=== PATIENT | female | born 1945 | race Caucasian/White ===

== ENCOUNTER 2023-05-13 16:04 | Inpatient (IN) | payer MEDICARE, MEDICAID, SELFPAY ==
[2023-05-13] VITALS (109 sets, daily range): BP systolic 92–168; BP diastolic 46–119; PULSE 64–115; RESP 16–40; TEMP 30.4–35.5; O2SAT 90–100; BMI 38.4
--- NOTE | 2023-05-13 16:40 | DI.RAD.S_ITS ---
PROCEDURE: XR CHEST 1V INDICATIONS: suspected sepsis TECHNIQUE: One view of the chest was acquired. COMPARISON: None. FINDINGS: Surgical changes and devices: None. Lungs and pleura: Prominent interstitial markings. Possible right basilar opacity.. No pleural effusions or pneumothorax. Mediastinum: Mediastinal contours appear normal. Heart size is enlarged. Bones and chest wall: No suspicious bony lesions. Overlying soft tissues appear unremarkable. IMPRESSION: Cardiomegaly with prominent interstitial markings, correlate for volume overload. Possible right basilar opacity. Dictated by: Manny Lee M.D. on 05/13/2023 at 17:41 Approved by: Manny Lee M.D. on 05/13/2023 at 17:42
[2023-05-13 16:55] LABS: Add Manual Diff / Slide Review NO; Basophils Absolute Auto 100 /uL (0-100); Eosinophils Absolute Auto 0 /uL (0-450); Eosinophils Percent Auto 0.2 % (2-4); Hematocrit 36.7 % (36-46); Hemoglobin 11.6 g/dL (12.0-16.0); Lymphocytes Absolute Auto 700 /uL (1100-4500); Lymphocytes Percent Auto 8.7 % (25-40); Mean Corpuscular HGB Conc 31.7 % (30-36); Mean Corpuscular Hemoglobin 29.3 PG (26-34); Mean Corpuscular Volume 92.5 fL (80-100); Monocytes Absolute Auto 1000 /uL (0-900); Monocytes Percent Auto 12.7 % (3-14); Neutrophils Absolute Auto 6300 /uL (1500-7000); Neutrophils Percent Auto 77.4 % (50-75); Platelet Count 280 X10^3/uL (150-400); Red Blood Cell Count 3.97 X10^6/uL (4.0-5.2); Red Cell Distribution Width 19.9 % (11.6-14.8); White Blood Cell Count 8.1 X10^3/uL (4.5-11.0)
[2023-05-13] MEDS: SODIUM CHLORIDE 0.9% 1,000 ML 1000 ML IV (16:59)
[2023-05-13 17:02] LABS: INR 1.8 (0.9-1.3); Prothrombin Time 20.9 SECONDS (9.4-12.5)
[2023-05-13 17:03] LABS: Lactate (Lactic Acid) 3.5 mmol/L (0.7-2.1)
[2023-05-13 17:04] LABS: Alanine Aminotransferase 30 IU/L (<35); Albumin 3.7 g/dL (3.5-5.0); Albumin Globulin Ratio 0.8 (1.0-2.8); Alkaline Phosphatase 225 U/L (38-126); Aspartate Aminotransferase 74 IU/L (14-36); BUN Creatinine Ratio 35.6 (6-22); Bilirubin Total 1.3 mg/dL (0.2-1.3); Blood Urea Nitrogen 32 mg/dL (7-17); Calcium 9.3 mg/dL (8.4-10.2); Carbon Dioxide 21 mmol/L (22-32); Chloride 101 mmol/L (98-107); Creatine Kinase 60 U/L (30-135); Estimated Glomerular Filt Rate > 60 mL/min (>60); Globulin 4.6 g/dL (1.7-4.1); Glucose 114 mg/dL (80-110); HEMOLYSIS < 15 (0-50); Lipase 102 U/L (23-300); PTT Partial Thromboplastin Tim 37 SECONDS (25.1-36.5); Sodium 135 mmol/L (137-145); Total Protein 8.3 g/dL (6.3-8.2)
[2023-05-13 17:16] LABS: NT-proBNP (BNP-Adult 18+) 2180 pg/mL (<450)
[2023-05-13 17:21] LABS: Procalcitonin 0.11 ng/mL (<0.5)
[2023-05-13 17:37] LABS: Troponin I 0.211 ng/mL (0.01-0.034)
[2023-05-13 17:43] LABS: Ethanol (ETOH) < 10 mg/dL
[2023-05-13 18:03] LABS: Appearance Urine UA CLEAR; Bilirubin Urine UA NEGATIVE (NEGATIVE); Glucose Urine UA NEGATIVE (Negative); Ketones Urine UA NEGATIVE (NEGATIVE); Leukocyte Esterase Urine UA NEGATIVE (NEGATIVE); Nitrite Urine UA NEGATIVE (Negative); Occult Blood Urine UA NEGATIVE (Negative); Protein Urine UA 2+ (Negative); Specific Gravity Urine UA >=1.030 (1.000-1.035)
[2023-05-13 18:04] LABS: Color Urine UA ORANGE
[2023-05-13 18:06] LABS: Ur Creatinine Normal (Normal); Ur Specific Gravity Normal (Normal); Urine Amphetamines Negative (Negative); Urine Barbiturates Negative (Negative); Urine Benzodiazepines Negative (Negative); Urine Cocaine Negative (Negative); Urine MDMA Negative (Negative); Urine Methadone Negative (Negative); Urine Methamphetamines Negative (Negative); Urine Opiates Negative (Negative); Urine Oxycodone Negative (Negative); Urine Phencyclidine Negative (Negative); Urine THC Negative (Negative); Urine Tricyclic Antidepressant Negative (Negative); Urine pH Normal (Normal)
--- NOTE | 2023-05-13 18:06 | ED.EXTPRO ---
HPI - Extremity Problem General Chief complaint: Extremity Problem,Nontraumatic Stated complaint: bilateral leg swelling, cracking Time Seen by Provider: 05/13/23 17:29 History of Present Illness HPI Narrative: This is a 69-year-old female who apparently has a history of chronic venous stasis and chronic swelling in both legs. She is brought in to the emergency department by her son after presenting to an urgent care. Patient and her son report bilateral lower extremity pain primarily below the knees. At baseline she has limited ambulation, presently she is unable to ambulate at all part of this is weakness, she has also had some confusion and decreased mental status. No chest pain. She has not been noted to have fevers. Has a history of atrial fibrillation. Has a history of regular alcohol use, her sudden went to date on in [facility] where she regularly resides and brought her back, she has not had any alcohol in greater than a week. Her last hospitalization [facility] in [facility]. Patient is unsure why she was hospitalized there but apparently she was airlifted there. Has a history of bilateral lower extremity edema which typically does have compression dressings applied. No history of hypothyroidism, has a pulsed form indicating DNR but would accept at least selective treatment. Presently taking metoprolol and gabapentin at uncertain doses. Has previously been on Xarelto but apparently is not presently taking that also has a prescriptions for [place] and furosemide and apparently not taking those as well. No recent falls. Related Data Home Medications Medication Instructions Recorded Confirmed gabapentin 300 mg capsule 300 mg PO QID 05/13/23 05/13/23 metoprolol tartrate 25 mg tablet 75 mg PO BID 05/13/23 05/13/23 Allergies Allergy/AdvReac Type Severity Reaction Status Date / Time Penicillins Allergy Verified 05/13/23 16:09 Patient History Social History household members: family Smoking Status: Never smoker Smoking Status: Never smoker alcohol intake frequency: holidays/special occasions only Substance Use Type: does not use Exam Initial Vital Signs Initial Vital Signs: Vital Signs Temperature 94.0 F L 05/13/23 16:09 Pulse Rate 68 05/13/23 16:09 Respiratory Rate 18 05/13/23 16:09 Blood Pressure 100/56 L 05/13/23 16:09 Pulse Oximetry 91 05/13/23 16:09 Oxygen Delivery Method Room Air 05/13/23 16:09 Const Other: Elderly female who appears a bit encephalopathic, she generally prefers to allow her son to do the talking however when questioned directly she is oriented to year not the city and tends to confabulate on questions. She is noted to be significantly hypothermic with marginal blood pressures HENMT HENDC Other: Normocephalic, atraumatic, no facial droop or asymmetry Eyes Other: Pupils are equal round and reactive extraocular movements are intact Neck Other: Neck is supple, I am unable to assess jugular venous distention secondary to body habitus Resp Other: No respiratory distress, speaking in full sentences, she has peripheral cyanosis Cardio Other: Irregularly irregular soft systolic murmur GI Other: Abdomen is obese, bowel sounds normal soft Skin Other: Chronic venous stasis changes in her lower extremities. Neuro Other: No focal motor deficits, mental status as described above Extrem Other: Both feet are cyanotic with delayed capillary refill. They are tender to palpation they are cool, I am unable to palpate pulses and we are unable to locate pulses with the Doppler. Course Orders Ordered: ED Orders 05/13/23 16:40 XR chest 1V Stat BNP [NT-proBNP (BNP-Adult 18+)] Stat Complete Blood Count AUTO DIFF Stat Comprehensive Metabolic Panel Stat ETOH [Ethanol (ETOH)] Stat Lactate (Lactic Acid) Stat Lipase Stat PTT Partial Thromboplastin [place] Stat Procalcitonin Stat Prothrombin Time INR Stat TSH [Thyroid Stimulating Hormone] Stat Troponin & CK Cardiac Panel Stat EKG-12 Lead Stat RT Consult Eval and Treat NOW 05/13/23 17:30 Blood Culture Stat 05/13/23 17:50 Urinalysis and Microscopic Stat urine tox [Urine Drug Screen, Rapid] Stat 05/13/23 18:31 US periph venous low extrem bi Stat pH VBG Stat 05/13/23 18:45 EKG-12 Lead Stat 05/13/23 18:50 US arterial duplex LE BI Stat 05/13/23 19:00 Trop I [Troponin I] Stat Acetaminophen (Acetaminophen 325 Mg Tablet) 650 mg PO Q6H PRN PRN Reason: Fever/Mild Pain (1-3) Last Admin: 05/13/23 23:27 Dose: 650 mg Documented By: [facility] Hydrocodone Bitart/Acetaminophen (Hydrocodone/Acet 5/325 Tablet) 1 tab PO Q4H PRN PRN Reason: Pain, Moderate (4-6) Last Admin: 05/13/23 23:28 Dose: 1 tab Documented By: OUSMANE Enoxaparin Sodium (Enoxaparin 40 Mg/0.4 Ml Syringe) 40 mg SUBCUT DAILY VERO Cefepime HCl 1 gm/ Sodium (Chloride) 100 mls @ 200 mls/hr IV Q12H VERO Naloxone HCl (Naloxone 0.4 Mg/Ml Vial) 0.2 mg IV Q2MIN PRN PRN Reason: Opiate Reversal Ondansetron HCl (Ondansetron 4 Mg/2 Ml Inj) 4 mg IV NOW PRN PRN Reason: Nausea And Vomiting Ondansetron HCl (Ondansetron 4 Mg Odt) 4 mg SL NOW PRN PRN Reason: Nausea And Vomiting Ondansetron HCl (Ondansetron 4 Mg/2 Ml Inj) 4 mg IV Q8HR PRN PRN Reason: Nausea And Vomiting Ondansetron HCl (Ondansetron 4 Mg Odt) 4 mg PO Q8HR PRN PRN Reason: Nausea And Vomiting Sennosides (Sennosides 8.6 Mg Tablet) 17.2 mg PO BEDTIME VERO Discontinued Medications Sodium Chloride (Normal Saline 0.9%) 1,000 mls @ 1,000 mls/hr IV BOLUS ONE Stop: 05/13/23 17:39 Last Infusion: 05/13/23 19:03 Dose: Infused Documented By: Infusion: 05/13/23 17:30 Dose: 500 mls/hr Documented By: Infusion: 05/13/23 17:25 Dose: 0 mls/hr Documented By: Infusion: 05/13/23 16:59 Dose: 500 mls/hr Documented By: Admin: 05/13/23 16:59 Dose: 1,000 mls/hr Documented By: CHESTER Vancomycin HCl (Vancomycin) 1,250 mg in 250 mls @ 250 mls/hr IV NOW ONE Stop: 05/13/23 19:38 Last Infusion: 05/13/23 21:03 Dose: Infused Documented By: Admin: 05/13/23 19:53 Dose: 250 mls/hr Documented By: CHESTER Cefepime HCl 2 gm/ Sodium (Chloride) 100 mls @ 200 mls/hr IV NOW ONE Stop: 05/13/23 18:41 Last Infusion: 05/13/23 19:49 Dose: Infused Documented By: Admin: 05/13/23 19:03 Dose: 200 mls/hr Documented By: ROSALBA Sodium Chloride (Normal Saline 0.9%) 1,000 mls @ 500 mls/hr IV BOLUS ONE Stop: 05/13/23 21:56 Last Infusion: 05/13/23 22:38 Dose: Infused Documented By: Admin: 05/13/23 20:04 Dose: 500 mls/hr Documented By: CHESTER Consultations Consultation #1: Discussed with hospitalist who accepts admission at 2200 Vital Signs Vital signs: Vital Signs - 8 hr 05/13/23 16:53 05/13/23 16:56 05/13/23 16:56 Temperature Pulse Rate 69 72 Respiratory Rate 27 H 31 H Blood Pressure 163/110 H Pulse Oximetry 99 97 Oxygen Delivery Method Oxygen Flow Rate 05/13/23 17:00 05/13/23 17:01 05/13/23 17:01 Temperature Pulse Rate 72 69 Respiratory Rate 32 H 32 H Blood Pressure 168/119 H Pulse Oximetry 97 96 Oxygen Delivery Method Oxygen Flow Rate 05/13/23 17:05 05/13/23 17:06 05/13/23 17:06 Temperature 86.7 F L 87.3 F L Pulse Rate 78 77 Respiratory Rate 22 38 H Blood Pressure 132/80 Pulse Oximetry 98 97 Oxygen Delivery Method Oxygen Flow Rate 05/13/23 17:10 05/13/23 17:11 05/13/23 17:11 Temperature 88.3 F L 88.7 F L Pulse Rate 68 64 Respiratory Rate 27 H 17 Blood Pressure 144/64 H Pulse Oximetry 98 99 Oxygen Delivery Method Oxygen Flow Rate 05/13/23 17:15 05/13/23 17:16 05/13/23 17:16 Temperature 89.2 F L 89.2 F L Pulse Rate 72 71 Respiratory Rate 20 18 Blood Pressure 125/60 Pulse Oximetry 97 94 Oxygen Delivery Method Oxygen Flow Rate 05/13/23 17:20 05/13/23 17:21 05/13/23 17:21 Temperature 89.6 F L 89.8 F L Pulse Rate 74 69 Respiratory Rate 21 20 Blood Pressure 132/57 L Pulse Oximetry 97 96 Oxygen Delivery Method Oxygen Flow Rate 05/13/23 17:25 05/13/23 17:30 05/13/23 17:35 Temperature 90.0 F L 90.1 F L Pulse Rate 79 72 Respiratory Rate 22 17 Blood Pressure 112/50 L Pulse Oximetry 97 90 L Oxygen Delivery Method Oxygen Flow Rate 05/13/23 17:35 05/13/23 17:40 05/13/23 17:41 Temperature 90.3 F L 90.3 F L Pulse Rate 70 72 Respiratory Rate 17 23 Blood Pressure 95/60 Pulse Oximetry 94 97 Oxygen Delivery Method Oxygen Flow Rate 05/13/23 17:41 05/13/23 17:45 05/13/23 17:46 Temperature 90.3 F L 90.3 F L Pulse Rate 71 68 Respiratory Rate 21 21 Blood Pressure 127/65 Pulse Oximetry 97 97 Oxygen Delivery Method Oxygen Flow Rate 05/13/23 17:46 05/13/23 17:50 05/13/23 17:51 Temperature 90.3 F L 90.3 F L Pulse Rate 66 65 Respiratory Rate 18 24 Blood Pressure 100/49 L Pulse Oximetry 96 97 Oxygen Delivery Method Oxygen Flow Rate 05/13/23 17:51 05/13/23 17:55 05/13/23 17:55 Temperature 90.5 F L 90.5 F L Pulse Rate 70 73 Respiratory Rate 20 16 Blood Pressure 113/58 L Pulse Oximetry 97 96 Oxygen Delivery Method Nasal Cannula Oxygen Flow Rate 4 05/13/23 18:00 05/13/23 18:00 05/13/23 18:05 Temperature 90.5 F L 90.5 F L Pulse Rate 66 64 Respiratory Rate 17 26 H Blood Pressure 107/50 L Pulse Oximetry 96 97 Oxygen Delivery Method Oxygen Flow Rate 05/13/23 18:06 05/13/23 18:06 05/13/23 18:10 Temperature 90.5 F L Pulse Rate 69 Respiratory Rate 19 Blood Pressure 119/56 L 107/56 L Pulse Oximetry 96 Oxygen Delivery Method Oxygen Flow Rate 05/13/23 18:10 05/13/23 18:15 05/13/23 18:15 Temperature 90.5 F L 90.5 F L Pulse Rate 68 69 Respiratory Rate 20 24 Blood Pressure 120/63 Pulse Oximetry 96 96 Oxygen Delivery Method Nasal Cannula Oxygen Flow Rate 4 05/13/23 18:20 05/13/23 18:20 05/13/23 18:25 Temperature 90.5 F L 90.5 F L Pulse Rate 66 76 Respiratory Rate 25 H 25 H Blood Pressure 115/58 L Pulse Oximetry 97 94 Oxygen Delivery Method Oxygen Flow Rate 05/13/23 18:26 05/13/23 18:26 05/13/23 18:30 Temperature 90.5 F L 90.5 F L Pulse Rate 68 71 Respiratory Rate 27 H 17 Blood Pressure 101/63 Pulse Oximetry 96 97 Oxygen Delivery Method Oxygen Flow Rate 05/13/23 18:31 05/13/23 18:31 05/13/23 18:35 Temperature 90.7 F L 90.7 F L Pulse Rate 69 69 Respiratory Rate 20 19 Blood Pressure 105/59 L Pulse Oximetry 97 96 Oxygen Delivery Method Nasal Cannula Oxygen Flow Rate 05/13/23 18:36 05/13/23 18:36 05/13/23 18:40 Temperature 90.7 F L 90.7 F L Pulse Rate 69 68 Respiratory Rate 25 H 19 Blood Pressure 92/66 Pulse Oximetry 96 97 Oxygen Delivery Method Oxygen Flow Rate 05/13/23 18:41 05/13/23 18:41 05/13/23 18:45 Temperature 90.7 F L 90.7 F L Pulse Rate 69 71 Respiratory Rate 21 23 Blood Pressure 111/56 L Pulse Oximetry 96 95 Oxygen Delivery Method Oxygen Flow Rate 05/13/23 18:45 05/13/23 18:50 05/13/23 18:50 Temperature 90.9 F L Pulse Rate 68 Respiratory Rate 20 Blood Pressure 115/54 L 96/46 L Pulse Oximetry 94 Oxygen Delivery Method Oxygen Flow Rate 05/13/23 18:55 05/13/23 18:55 05/13/23 19:00 Temperature 90.9 F L Pulse Rate 67 Respiratory Rate 25 H Blood Pressure 94/50 L 95/51 L Pulse Oximetry 93 Oxygen Delivery Method Oxygen Flow Rate 05/13/23 19:00 05/13/23 19:05 05/13/23 19:05 Temperature 90.9 F L 91.0 F L Pulse Rate 67 68 Respiratory Rate 25 H 23 Blood Pressure 108/58 L Pulse Oximetry 93 93 Oxygen Delivery Method Nasal Cannula Oxygen Flow Rate 4 05/13/23 19:10 05/13/23 19:10 05/13/23 19:15 Temperature 91.0 F L 91.0 F L Pulse Rate 69 66 Respiratory Rate 23 22 Blood Pressure 97/58 L Pulse Oximetry 93 95 Oxygen Delivery Method Nasal Cannula Oxygen Flow Rate 4 05/13/23 19:16 05/13/23 19:16 05/13/23 19:20 Temperature 91.0 F L 91.2 F L Pulse Rate 69 74 Respiratory Rate 26 H 24 Blood Pressure 100/63 Pulse Oximetry 95 95 Oxygen Delivery Method Oxygen Flow Rate 05/13/23 19:22 05/13/23 19:22 05/13/23 19:25 Temperature 91.2 F L Pulse Rate 78 Respiratory Rate 22 Blood Pressure 108/58 L 119/58 L Pulse Oximetry 94 Oxygen Delivery Method Oxygen Flow Rate 05/13/23 19:25 05/13/23 19:30 05/13/23 19:31 Temperature 91.2 F L 91.2 F L Pulse Rate 76 70 Respiratory Rate 17 24 Blood Pressure 150/67 H Pulse Oximetry 96 94 Oxygen Delivery Method Oxygen Flow Rate 05/13/23 19:31 05/13/23 19:35 05/13/23 19:36 Temperature 91.2 F L 91.4 F L 91.4 F L Pulse Rate 78 69 73 Respiratory Rate 27 H 19 21 Blood Pressure Pulse Oximetry 94 95 95 Oxygen Delivery Method Oxygen Flow Rate 05/13/23 19:36 05/13/23 19:40 05/13/23 19:41 Temperature 91.4 F L Pulse Rate 72 Respiratory Rate 17 Blood Pressure 127/58 L 109/57 L Pulse Oximetry 95 Oxygen Delivery Method Oxygen Flow Rate 05/13/23 19:41 05/13/23 19:45 05/13/23 19:45 Temperature 91.4 F L 91.4 F L Pulse Rate 72 77 Respiratory Rate 22 25 H Blood Pressure 136/58 L Pulse Oximetry 94 94 Oxygen Delivery Method Nasal Cannula Oxygen Flow Rate 4 05/13/23 19:50 05/13/23 19:51 05/13/23 19:51 Temperature 91.6 F L 91.6 F L Pulse Rate 73 77 Respiratory Rate 22 27 H Blood Pressure 130/59 L Pulse Oximetry 93 95 Oxygen Delivery Method Nasal Cannula Oxygen Flow Rate 4 05/13/23 19:55 05/13/23 20:00 05/13/23 20:01 Temperature 91.6 F L 91.8 F L Pulse Rate 74 77 Respiratory Rate 21 22 Blood Pressure 113/56 L Pulse Oximetry 94 95 Oxygen Delivery Method Oxygen Flow Rate 05/13/23 20:01 05/13/23 20:05 05/13/23 20:10 Temperature 91.8 F L 91.8 F L 91.8 F L Pulse Rate 77 77 85 Respiratory Rate 22 26 H Blood Pressure Pulse Oximetry 94 95 94 Oxygen Delivery Method Nasal Cannula Oxygen Flow Rate 4 05/13/23 20:15 05/13/23 20:16 05/13/23 20:16 Temperature 91.9 F L 91.9 F L Pulse Rate 74 76 Respiratory Rate 25 H Blood Pressure 126/46 L Pulse Oximetry 95 96 Oxygen Delivery Method Nasal Cannula Oxygen Flow Rate 4 05/13/23 20:20 05/13/23 20:25 05/13/23 20:30 Temperature 91.9 F L 92.1 F L 92.1 F L Pulse Rate 74 79 77 Respiratory Rate 23 24 26 H Blood Pressure Pulse Oximetry 95 95 95 Oxygen Delivery Method Oxygen Flow Rate 05/13/23 20:35 05/13/23 20:40 05/13/23 20:40 Temperature 92.1 F L 92.3 F L Pulse Rate 72 75 Respiratory Rate 19 21 Blood Pressure 103/50 L Pulse Oximetry 95 94 Oxygen Delivery Method Oxygen Flow Rate 05/13/23 20:45 05/13/23 20:45 05/13/23 20:50 Temperature 92.3 F L 92.5 F L Pulse Rate 73 80 Respiratory Rate 21 26 H Blood Pressure 105/52 L Pulse Oximetry 94 95 Oxygen Delivery Method Nasal Cannula Oxygen Flow Rate 4 05/13/23 20:55 05/13/23 21:00 05/13/23 21:01 Temperature 92.5 F L 92.7 F L Pulse Rate 84 75 Respiratory Rate 20 30 H Blood Pressure 114/51 L Pulse Oximetry 94 95 Oxygen Delivery Method Oxygen Flow Rate 05/13/23 21:01 05/13/23 21:05 05/13/23 21:10 Temperature 92.7 F L 92.7 F L 92.8 F L Pulse Rate 84 76 75 Respiratory Rate 32 H 27 H 25 H Blood Pressure Pulse Oximetry 95 96 96 Oxygen Delivery Method Oxygen Flow Rate 05/13/23 21:15 05/13/23 21:15 05/13/23 21:20 Temperature 92.8 F L 93.0 F L Pulse Rate 74 79 Respiratory Rate 30 H 29 H Blood Pressure 96/51 L Pulse Oximetry 98 96 Oxygen Delivery Method Oxygen Flow Rate 05/13/23 21:25 05/13/23 21:30 05/13/23 21:31 Temperature 93.0 F L 93.2 F L Pulse Rate 81 90 Respiratory Rate 36 H 36 H Blood Pressure 133/63 Pulse Oximetry 98 97 Oxygen Delivery Method Oxygen Flow Rate 05/13/23 21:31 05/13/23 21:35 05/13/23 21:40 Temperature 93.2 F L 93.4 F L 93.4 F L Pulse Rate 81 86 91 H Respiratory Rate 36 H 30 H 35 H Blood Pressure Pulse Oximetry 93 98 99 Oxygen Delivery Method Nasal Cannula Oxygen Flow Rate 4 05/13/23 21:45 05/13/23 21:45 05/13/23 21:50 Temperature 93.6 F L 93.6 F L Pulse Rate 92 H 101 H Respiratory Rate 31 H 30 H Blood Pressure 149/70 H Pulse Oximetry 99 100 Oxygen Delivery Method Oxygen Flow Rate 05/13/23 21:55 05/13/23 22:00 05/13/23 22:05 Temperature 93.7 F L 93.7 F L 93.9 F L Pulse Rate 98 H 107 H 100 H Respiratory Rate 30 H 28 H 31 H Blood Pressure Pulse Oximetry 100 99 99 Oxygen Delivery Method Nasal Cannula Oxygen Flow Rate 4 MDM - Extremity (Nontraumatic) Lab Data Lab results narrative: CBC is unremarkable. CMP she has elevated BUN and creatinine ratio indicating dehydration high normal potassium. Lactic is elevated at 3.5. Procalcitonin is normal. Troponin is elevated at 0.2 and 1 with elevated proBNP at 2180 no baseline TSH is normal 05/13/23 16:40 05/13/23 16:40 Labs: Lab Results 05/13/23 05/13/23 05/13/23 Range/Units 16:40 17:50 17:50 WBC 8.1 (4.5-11.0) X10^3/uL RBC 3.97 L (4.0-5.2) X10^6/uL Hgb 11.6 L (12.0-16.0) g/dL Hct 36.7 (36-46) % MCV 92.5 (80-100) fL MCH 29.3 (26-34) PG MCHC 31.7 (30-36) % RDW 19.9 H (11.6-14.8) % Plt Count 280 (150-400) X10^3/uL Neut % (Auto) 77.4 H (50-75) % Lymph % (Auto) 8.7 L (25-40) % [place] % (Auto) 12.7 (3-14) % Eos % (Auto) 0.2 L (2-4) % Baso % (Auto) 1.0 (0-2) % Neut # (Auto) 6300 (7071-6593) /uL Lymph # (Auto) 700 L (0830-4002) /uL [place] # (Auto) 1000 H (0-900) /uL Eos # (Auto) 0 (0-450) /uL Baso # (Auto) 100 (0-100) /uL PT 20.9 H (9.4-12.5) SECONDS INR 1.8 H (0.9-1.3) APTT 37 H (25.1-36.5) SECONDS VBG pH (7.33-7.43) Sodium 135 L (137-145) mmol/L Potassium 5.0 (3.4-5.1) mmol/L Chloride 101 (98-107) mmol/L Carbon Dioxide 21 L (22-32) mmol/L BUN 32 H (7-17) mg/dL Creatinine 0.90 (0.52-1.04) mg/dL Estimated GFR > 60 (>60) mL/min BUN/Creatinine Ratio 35.6 H (6-22) Glucose 114 H (80-110) mg/dL Lactate 3.5 H (0.7-2.1) mmol/L Calcium 9.3 (8.4-10.2) mg/dL Total Bilirubin 1.3 (0.2-1.3) mg/dL AST 74 H (14-36) IU/L ALT 30 (<35) IU/L Alkaline Phosphatase 225 H (38-126) U/L Total Creatine Kinase 60 (30-135) U/L Troponin I 0.211 H* (0.01-0.034) ng/mL NT-Pro-B Natriuret Pep 2180 H (<450) pg/mL Total Protein 8.3 H (6.3-8.2) g/dL Albumin 3.7 (3.5-5.0) g/dL Globulin 4.6 H (1.7-4.1) g/dL Albumin/Globulin Ratio 0.8 L (1.0-2.8) Lipase 102 (23-300) U/L Procalcitonin 0.11 (<0.5) ng/mL TSH 3.36 (0.47-4.68) uIU/mL Urine Color [place] Urine Appearance Clear Urine pH 5.0 Normal (4.5-8.0) Ur Specific [place] >=1.030 H (1.000-1.035) Urine Protein 2+ H (Negative) Urine Glucose (UA) Negative (Negative) g/dL Urine Ketones Negative (NEGATIVE) Urine Occult Blood Negative (Negative) Urine Nitrate Negative (Negative) Urine Bilirubin Negative (NEGATIVE) Urine Urobilinogen 4.0 H (0.2) E.U./dL Ur Leukocyte Esterase Negative (NEGATIVE) Urine RBC None seen (0-5/HPF) Urine WBC 0-1/hpf (0-5/HPF) Ur Squamous Epith Cells 5-10 /hpf H (0-5/HPF) Urine Bacteria Moderate (10-30) H (None) Hyaline Casts 1-5/lpf (None) Urine Mucus 2+ H (Negative) Ur Culture Indicated? Cult not indicated Vol Urine Centrifuged 10ml (spun) U Opiates 300ng/mL cut Negative (Negative) Ur Oxycodone Screen Negative (Negative) Urine Methadone Screen Negative (Negative) Ur Barbiturates Screen Negative (Negative) U Tricyclic Antidepress Negative (Negative) Ur Phencyclidine Scrn Negative (Negative) Ur Amphetamines Screen Negative (Negative) U Methamphetamines Scrn Negative (Negative) Ur MDMA Scrn (Ecstasy) Negative (Negative) U Benzodiazepines Scrn Negative (Negative) Urine Cocaine Screen Negative (Negative) U Marijuana (THC) Screen Negative (Negative) Urine Specific [place] Normal (Normal) Ethyl Alcohol < 10 ( - 10) mg/dL Ur Creatinine Normal (Normal) 05/13/23 05/13/23 Range/Units 18:31 19:00 WBC (4.5-11.0) X10^3/uL RBC (4.0-5.2) X10^6/uL Hgb (12.0-16.0) g/dL Hct (36-46) % MCV (80-100) fL MCH (26-34) PG MCHC (30-36) % RDW (11.6-14.8) % Plt Count (150-400) X10^3/uL Neut % (Auto) (50-75) % Lymph % (Auto) (25-40) % [place] % (Auto) (3-14) % Eos % (Auto) (2-4) % Baso % (Auto) (0-2) % Neut # (Auto) (4536-5879) /uL Lymph # (Auto) (6916-1093) /uL [place] # (Auto) (0-900) /uL Eos # (Auto) (0-450) /uL Baso # (Auto) (0-100) /uL PT (9.4-12.5) SECONDS INR (0.9-1.3) APTT (25.1-36.5) SECONDS VBG pH 7.32 L (7.33-7.43) Sodium (137-145) mmol/L Potassium (3.4-5.1) mmol/L Chloride (98-107) mmol/L Carbon Dioxide (22-32) mmol/L BUN (7-17) mg/dL Creatinine (0.52-1.04) mg/dL Estimated GFR (>60) mL/min BUN/Creatinine Ratio (6-22) Glucose (80-110) mg/dL Lactate 3.2 H (0.7-2.1) mmol/L Calcium (8.4-10.2) mg/dL Total Bilirubin (0.2-1.3) mg/dL AST (14-36) IU/L ALT (<35) IU/L Alkaline Phosphatase (38-126) U/L Total Creatine Kinase (30-135) U/L Troponin I 0.251 H* (0.01-0.034) ng/mL NT-Pro-B Natriuret Pep (<450) pg/mL Total Protein (6.3-8.2) g/dL Albumin (3.5-5.0) g/dL Globulin (1.7-4.1) g/dL Albumin/Globulin Ratio (1.0-2.8) Lipase (23-300) U/L Procalcitonin (<0.5) ng/mL TSH (0.47-4.68) uIU/mL Urine Color Urine Appearance Urine pH (4.5-8.0) Ur Specific [place] (1.000-1.035) Urine Protein (Negative) Urine Glucose (UA) (Negative) g/dL Urine Ketones (NEGATIVE) Urine Occult Blood (Negative) Urine Nitrate (Negative) Urine Bilirubin (NEGATIVE) Urine Urobilinogen (0.2) E.U./dL Ur Leukocyte Esterase (NEGATIVE) Urine RBC (0-5/HPF) Urine WBC (0-5/HPF) Ur Squamous Epith Cells (0-5/HPF) Urine Bacteria (None) Hyaline Casts (None) Urine Mucus (Negative) Ur Culture Indicated? Vol Urine Centrifuged U Opiates 300ng/mL cut (Negative) Ur Oxycodone Screen (Negative) Urine Methadone Screen (Negative) Ur Barbiturates Screen (Negative) U Tricyclic Antidepress (Negative) Ur Phencyclidine Scrn (Negative) Ur Amphetamines Screen (Negative) U Methamphetamines Scrn (Negative) Ur MDMA Scrn (Ecstasy) (Negative) U Benzodiazepines Scrn (Negative) Urine Cocaine Screen (Negative) U Marijuana (THC) Screen (Negative) Urine Specific [place] (Normal) Ethyl Alcohol ( - 10) mg/dL Ur Creatinine (Normal) ABG Data ABG results: Venous blood gas pH is 7.317 pCO2 is 38 PO2 is 47 Imaging Data Chest x-ray: My Impression: Independent review of chest x-ray, cardiomegaly no definite infiltrate no definite pulmonary edema Radiologist's Impression: [address] [address] XRay Report Signed Patient: Wanda Cerda MR#: [id number] : 1945 Acct:[id number] Age/Sex: 77 / F Date of Service: 05/13/23 Loc: ED Accession Number: [id number] Procedure: XR chest 1V Ordering Provider: Syeda Velarde D.O. PROCEDURE: XR CHEST 1V INDICATIONS: suspected sepsis TECHNIQUE: One view of the chest was acquired. COMPARISON: None. FINDINGS: Surgical changes and devices: None. Lungs and pleura: Prominent interstitial markings. Possible right basilar opacity.. No pleural effusions or pneumothorax. Mediastinum: Mediastinal contours appear normal. Heart size is enlarged. Bones and chest wall: No suspicious bony lesions. Overlying soft tissues appear unremarkable. IMPRESSION: Cardiomegaly with prominent interstitial markings, correlate for volume overload. Possible right basilar opacity. Dictated by: Manny Lee M.D. on 05/13/2023 at 17:41 Approved by: Manny Lee M.D. on 05/13/2023 at 17:42 ECG Data Interpretation: EKG shows atrial fibrillation at 74 right bundle-branch block no baseline EKG for comparison MDM Narrative Medical decision making narrative: This is a 72-year-old female with a history of atrial fibrillation and chronic venous stasis in the lower extremities. Presents to the emergency department with bilateral lower extremity pain, increasing weakness and confusion. She did not have any focal neurologic findings. I considered sepsis, he does in fact have an elevated lactic acid however at this point does not have a clear infection, she is hypothermic if anything without leukocytosis or a procalcitonin. While she is got chronic appearing edema, she appears to be intravascularly dry. I cautiously gave her fluids and she did produce some urine. She was never frankly hypotensive. There was concern for lower extremity ischemia, ultrasound showed good circulation to both lower extremities and no DVT. Initial troponin was elevated, EKG does not show acute ischemic changes there is no baseline available. Troponin is trending downward after cautious fluid resuscitation. Discharge Plan Departure Patient Disposition: Admitted As Inpatient Clinical Impression: Dehydration, Chronic venous stasis, Elevated troponin I level Hypothermia Qualifiers: Encounter type: initial encounter Qualified Code(s): T68.XXXA - Hypothermia, initial encounter Admit Date/Time: 05/13/23 22:05 Admit Provider: Americo Bhatia
[2023-05-13 18:07] LABS: Urine Volume 10mL (spun)
[2023-05-13 18:09] LABS: Bacteria Urine Moderate (10-30); Culture Indicated Urine Cult Not Indicated; Hyaline Casts Urine 1-5/LPF; Mucus Urine 2+ (Negative); RBC Urine None Seen (0-5/HPF); Squamous Epithelial Cell Urine 5-10 /HPF (0-5/HPF); WBC Urine 0-1/HPF (0-5/HPF)
--- NOTE | 2023-05-13 18:09 | PC.NURSE ---
Per son patient follows wound care in [place]. Pt legs are wrapped and have compression stocking overtop. Waiting to remove until provider Slack present and for potential pain medications. Pt is somnolent, but arouses to voice and answers questions appropriately. Pt face is discolored with redness/purple. Pt has severe redness, swelling, inflammation, and excoriation under breasts and in groin area. Pt has bear hugger on due to hypothermia.
--- NOTE | 2023-05-13 18:09 | PC.NURSE ---
Patient's son discussed his mother's care with this RN; she is currently living in his 5th wheel RV on his property. He states she lived there up until December 2022 and that she was mobile and that her leg wounds were healing, but then she moved back to [place], [place] to live with her other son. In that time, per this son, she gained a lot of weight and stopped moving around; her leg wounds got a lot worse. She was getting wound care done in [place] per her son, but presents today with very painful bilateral leg wounds. Wounds will be unwrapped and assessed by RNs once she is stabilized and her pain is managed.
--- NOTE | 2023-05-13 18:24 | PC.NURSE ---
REWORKER Note: This REWORKER called [facility] to get records of patient. Spoke to Adriana. Sent over medical records request form by fax to [phone]. Will be faxing shortly.
[2023-05-13 18:30] LABS: Reflexed Lactate in 2 Hours Y
--- NOTE | 2023-05-13 18:31 | DI.US.S_ITS ---
PROCEDURE: US PERIPH VENOUS LOW EXTREM BI INDICATIONS: LE wounds, swelling TECHNIQUE: Real-time imaging, as well as color and pulse Doppler interrogation, were performed of the deep veins of both legs from the inguinal ligament to the popliteal fossa, with documentation of the visualized calf veins. COMPARISON: None. FINDINGS: Right: The common femoral, femoral, popliteal, and the visualized calf veins are normally compressible, and free of intraluminal thrombus. Color and pulse Doppler demonstrate normal phasic intravascular flow. There is normal augmentation response to distal compression maneuver. Left: The common femoral, femoral, popliteal, and the visualized calf veins are normally compressible, and free of intraluminal thrombus. Color and pulse Doppler demonstrate normal phasic intravascular flow. There is normal augmentation response to distal compression maneuver. IMPRESSION: No findings of deep venous thrombosis in either lower extremity. Pulse cell flow is seen, correlate for congestive heart failure. Dictated by: Manny Lee M.D. on 05/13/2023 at 19:30 Approved by: Manny Lee M.D. on 05/13/2023 at 19:30
--- NOTE | 2023-05-13 18:50 | DI.US.S_ITS ---
PROCEDURE: US ARTERIAL DUPLEX LE BI INDICATIONS: no pulses in feet bilaterally TECHNIQUE: Color and pulse Doppler interrogation was performed of both lower extremity arterial systems, with image documentation. COMPARISON: None. FINDINGS: Right lower extremity: Common femoral artery: 83 cm/sec, with triphasic flow. Deep femoral artery: 79 cm/sec, with triphasic flow. Proximal superficial femoral artery: 96 cm/sec, with triphasic/biphasic flow. Mid superficial femoral artery: 77 cm/sec, with triphasic/biphasic flow. Distal superficial femoral artery: 75 cm/sec, with triphasic/biphasic flow. Popliteal artery: 64 cm/sec, with biphasic flow. Posterior tibial artery: 59 cm/sec, with biphasic flow. Anterior tibial artery/dorsalis pedis: 70 cm/sec, with biphasic flow. Mcnair-scale imaging description: Mild atherosclerotic plaques. Left lower extremity: Common femoral artery: 111 cm/sec, with triphasic flow. Deep femoral artery: 59 cm/sec, with biphasic flow. Proximal superficial femoral artery: 114 cm/sec, with biphasic flow. Mid superficial femoral artery: 80 cm/sec, with biphasic flow. Distal superficial femoral artery: 51 cm/sec, with biphasic flow. Popliteal artery: 57 cm/sec, with biphasic flow. Posterior tibial artery: 67 cm/sec, with biphasic flow. Anterior tibial artery/dorsalis pedis: 87 cm/sec, with biphasic flow. Mcnair-scale imaging description: Mild atherosclerotic plaques. IMPRESSION: No high-grade stenosis. Biphasic flow throughout the majority of the lower extremities as above. Dictated by: Manny Lee M.D. on 05/13/2023 at 19:53 Approved by: Manny Lee M.D. on 05/13/2023 at 19:55
[2023-05-13] MEDS: CEFEPIME 2 GM in SODIUM CHLORIDE 0.9% 100 ML IV (19:03)
[2023-05-13 19:35] LABS: Troponin I 0.251 ng/mL (0.01-0.034)
[2023-05-13 19:47] LABS: Lactate 2HR (Lactic Acid Rflx) 3.2 mmol/L (0.7-2.1)
[2023-05-13] MEDS: VANCOMYCIN 1,250 MG/250 ML PIGGYBACK 250 MG IV (19:53)
[2023-05-13 20:01] LABS: Thyroid Stimulating Hormone 3.36 uIU/mL (0.47-4.68)
[2023-05-13] MEDS: SODIUM CHLORIDE 0.9% 1,000 ML 500 ML IV (20:04)
--- NOTE | 2023-05-13 21:22 | PC.NURSE ---
Provider Slack wants bilateral legs to remain open to air and undressed. Legs left open to air.
--- NOTE | 2023-05-13 21:42 | PC.NURSE ---
Pt sat up to eat Jello and drink water. Provider OKAYED to eat/drink. Pt reports body aches and headache.
--- NOTE | 2023-05-13 21:59 | PC.NURSE ---
Pt requesting pain meds. Provider made aware. No new orders at this time.
--- NOTE | 2023-05-13 22:40 | P.HP_ITS ---
History of Present Illness History of Present Illness Date Patient Seen: 05/13/23 Chief complaint: bilateral leg swelling, cracking Narrative: 77 y/o with PMH of b/l leg swelling, lymphedema[place] [facility] [place] son for worsening legs swelling, weeping. She is not a good historian and I understand that she has a history of atrial fibrilation, HTN, alcoholism. On admission to ED fluid overloaded, septic, started on vancomycin / cefepime and given a total of 1.5 L of IVFs with elevated BNP and likely CHF. [facility] Social History household members: family Smoking Status: Never smoker Meds Home Medications and Allergies Home Medications Medication Instructions Recorded Confirmed Type gabapentin 300 mg capsule 300 mg PO QID 05/13/23 05/13/23 History metoprolol tartrate 25 mg tablet 75 mg PO BID 05/13/23 05/13/23 History Allergies Allergy/AdvReac Type Severity Reaction Status Date / Time Penicillins Allergy Verified 05/13/23 16:09 Review of Systems Review of Systems Narrative: Poor historian Cardiovascular Comments: w/o chest pain Respiratory Comments: using oxygen at night Gastrointestinal Comments: abdomen not distended Musculoskeletal Comments: worsening legs swelling since 4 months ago - according to son Exam Vital Signs (past 8 hours): - 05/13/23 16:09 05/13/23 16:53 05/13/23 16:56 Temperature 94.0 F L Pulse Rate 68 69 Respiratory Rate 18 27 H Blood Pressure 100/56 L 163/110 H Pulse Oximetry 91 99 Oxygen Delivery Method Room Air Oxygen Flow Rate 05/13/23 16:56 05/13/23 17:00 05/13/23 17:01 Temperature Pulse Rate 72 72 69 Respiratory Rate 31 H 32 H 32 H Blood Pressure Pulse Oximetry 97 97 96 Oxygen Delivery Method Oxygen Flow Rate 05/13/23 17:01 05/13/23 17:05 05/13/23 17:06 Temperature 86.7 F L 87.3 F L Pulse Rate 78 77 Respiratory Rate 22 38 H Blood Pressure 168/119 H Pulse Oximetry 98 97 Oxygen Delivery Method Oxygen Flow Rate 05/13/23 17:06 05/13/23 17:10 05/13/23 17:11 Temperature 88.3 F L Pulse Rate 68 Respiratory Rate 27 H Blood Pressure 132/80 144/64 H Pulse Oximetry 98 Oxygen Delivery Method Oxygen Flow Rate 05/13/23 17:11 05/13/23 17:15 05/13/23 17:16 Temperature 88.7 F L 89.2 F L Pulse Rate 64 72 Respiratory Rate 17 20 Blood Pressure 125/60 Pulse Oximetry 99 97 Oxygen Delivery Method Oxygen Flow Rate 05/13/23 17:16 05/13/23 17:20 05/13/23 17:21 Temperature 89.2 F L 89.6 F L Pulse Rate 71 74 Respiratory Rate 18 21 Blood Pressure 132/57 L Pulse Oximetry 94 97 Oxygen Delivery Method Oxygen Flow Rate 05/13/23 17:21 05/13/23 17:25 05/13/23 17:30 Temperature 89.8 F L 90.0 F L 90.1 F L Pulse Rate 69 79 72 Respiratory Rate 20 22 17 Blood Pressure Pulse Oximetry 96 97 90 L Oxygen Delivery Method Oxygen Flow Rate 05/13/23 17:35 05/13/23 17:35 05/13/23 17:40 Temperature 90.3 F L 90.3 F L Pulse Rate 70 72 Respiratory Rate 17 23 Blood Pressure 112/50 L Pulse Oximetry 94 97 Oxygen Delivery Method Oxygen Flow Rate 05/13/23 17:41 05/13/23 17:41 05/13/23 17:45 Temperature 90.3 F L 90.3 F L Pulse Rate 71 68 Respiratory Rate 21 21 Blood Pressure 95/60 Pulse Oximetry 97 97 Oxygen Delivery Method Oxygen Flow Rate 05/13/23 17:46 05/13/23 17:46 05/13/23 17:50 Temperature 90.3 F L 90.3 F L Pulse Rate 66 65 Respiratory Rate 18 24 Blood Pressure 127/65 Pulse Oximetry 96 97 Oxygen Delivery Method Oxygen Flow Rate 05/13/23 17:51 05/13/23 17:51 05/13/23 17:55 Temperature 90.5 F L Pulse Rate 70 Respiratory Rate 20 Blood Pressure 100/49 L 113/58 L Pulse Oximetry 97 Oxygen Delivery Method Oxygen Flow Rate 05/13/23 17:55 05/13/23 18:00 05/13/23 18:00 Temperature 90.5 F L 90.5 F L Pulse Rate 73 66 Respiratory Rate 16 17 Blood Pressure 107/50 L Pulse Oximetry 96 96 Oxygen Delivery Method Nasal Cannula Oxygen Flow Rate 4 05/13/23 18:05 05/13/23 18:06 05/13/23 18:06 Temperature 90.5 F L 90.5 F L Pulse Rate 64 69 Respiratory Rate 26 H 19 Blood Pressure 119/56 L Pulse Oximetry 97 96 Oxygen Delivery Method Oxygen Flow Rate 05/13/23 18:10 05/13/23 18:10 05/13/23 18:15 Temperature 90.5 F L Pulse Rate 68 Respiratory Rate 20 Blood Pressure 107/56 L 120/63 Pulse Oximetry 96 Oxygen Delivery Method Nasal Cannula Oxygen Flow Rate 2 05/13/23 18:15 05/13/23 18:20 05/13/23 18:20 Temperature 90.5 F L 90.5 F L Pulse Rate 69 66 Respiratory Rate 24 25 H Blood Pressure 115/58 L Pulse Oximetry 96 97 Oxygen Delivery Method Oxygen Flow Rate 05/13/23 18:25 05/13/23 18:26 05/13/23 18:26 Temperature 90.5 F L 90.5 F L Pulse Rate 76 68 Respiratory Rate 25 H 27 H Blood Pressure 101/63 Pulse Oximetry 94 96 Oxygen Delivery Method Oxygen Flow Rate 05/13/23 18:30 05/13/23 18:31 05/13/23 18:31 Temperature 90.5 F L 90.7 F L Pulse Rate 71 69 Respiratory Rate 17 20 Blood Pressure 105/59 L Pulse Oximetry 97 97 Oxygen Delivery Method Nasal Cannula Oxygen Flow Rate 4 05/13/23 18:35 05/13/23 18:36 05/13/23 18:36 Temperature 90.7 F L 90.7 F L Pulse Rate 69 69 Respiratory Rate 19 25 H Blood Pressure 92/66 Pulse Oximetry 96 96 Oxygen Delivery Method Oxygen Flow Rate 05/13/23 18:40 05/13/23 18:41 05/13/23 18:41 Temperature 90.7 F L 90.7 F L Pulse Rate 68 69 Respiratory Rate 19 21 Blood Pressure 111/56 L Pulse Oximetry 97 96 Oxygen Delivery Method Oxygen Flow Rate 05/13/23 18:45 05/13/23 18:45 05/13/23 18:50 Temperature 90.7 F L Pulse Rate 71 Respiratory Rate 23 Blood Pressure 115/54 L 96/46 L Pulse Oximetry 95 Oxygen Delivery Method Oxygen Flow Rate 05/13/23 18:50 05/13/23 18:55 05/13/23 18:55 Temperature 90.9 F L 90.9 F L Pulse Rate 68 67 Respiratory Rate 20 25 H Blood Pressure 94/50 L Pulse Oximetry 94 93 Oxygen Delivery Method Oxygen Flow Rate 05/13/23 19:00 05/13/23 19:00 05/13/23 19:05 Temperature 90.9 F L Pulse Rate 67 Respiratory Rate 25 H Blood Pressure 95/51 L 108/58 L Pulse Oximetry 93 Oxygen Delivery Method Nasal Cannula Oxygen Flow Rate 4 05/13/23 19:05 05/13/23 19:10 05/13/23 19:10 Temperature 91.0 F L 91.0 F L Pulse Rate 68 69 Respiratory Rate 23 23 Blood Pressure 97/58 L Pulse Oximetry 93 93 Oxygen Delivery Method Oxygen Flow Rate 05/13/23 19:15 05/13/23 19:16 05/13/23 19:16 Temperature 91.0 F L 91.0 F L Pulse Rate 66 69 Respiratory Rate 22 26 H Blood Pressure 100/63 Pulse Oximetry 95 95 Oxygen Delivery Method Nasal Cannula Oxygen Flow Rate 2 05/13/23 19:20 05/13/23 19:22 05/13/23 19:22 Temperature 91.2 F L 91.2 F L Pulse Rate 74 78 Respiratory Rate 24 22 Blood Pressure 108/58 L Pulse Oximetry 95 94 Oxygen Delivery Method Oxygen Flow Rate 05/13/23 19:25 05/13/23 19:25 05/13/23 19:30 Temperature 91.2 F L 91.2 F L Pulse Rate 76 70 Respiratory Rate 17 24 Blood Pressure 119/58 L Pulse Oximetry 96 94 Oxygen Delivery Method Oxygen Flow Rate 05/13/23 19:31 05/13/23 19:31 05/13/23 19:35 Temperature 91.2 F L 91.4 F L Pulse Rate 78 69 Respiratory Rate 27 H 19 Blood Pressure 150/67 H Pulse Oximetry 94 95 Oxygen Delivery Method Oxygen Flow Rate 05/13/23 19:36 05/13/23 19:36 05/13/23 19:40 Temperature 91.4 F L 91.4 F L Pulse Rate 73 72 Respiratory Rate 21 17 Blood Pressure 127/58 L Pulse Oximetry 95 95 Oxygen Delivery Method Oxygen Flow Rate 05/13/23 19:41 05/13/23 19:41 05/13/23 19:45 Temperature 91.4 F L 91.4 F L Pulse Rate 72 77 Respiratory Rate 22 25 H Blood Pressure 109/57 L Pulse Oximetry 94 94 Oxygen Delivery Method Nasal Cannula Oxygen Flow Rate 4 05/13/23 19:45 05/13/23 19:50 05/13/23 19:51 Temperature 91.6 F L Pulse Rate 73 Respiratory Rate 22 Blood Pressure 136/58 L 130/59 L Pulse Oximetry 93 Oxygen Delivery Method Oxygen Flow Rate 05/13/23 19:51 05/13/23 19:55 05/13/23 20:00 Temperature 91.6 F L 91.6 F L 91.8 F L Pulse Rate 77 74 77 Respiratory Rate 27 H 21 22 Blood Pressure Pulse Oximetry 95 94 95 Oxygen Delivery Method Nasal Cannula Oxygen Flow Rate 2 05/13/23 20:01 05/13/23 20:01 05/13/23 20:05 Temperature 91.8 F L 91.8 F L Pulse Rate 77 77 Respiratory Rate 22 Blood Pressure 113/56 L Pulse Oximetry 94 95 Oxygen Delivery Method Nasal Cannula Oxygen Flow Rate 2 05/13/23 20:10 05/13/23 20:15 05/13/23 20:16 Temperature 91.8 F L 91.9 F L Pulse Rate 85 74 Respiratory Rate 26 H 25 H Blood Pressure 126/46 L Pulse Oximetry 94 95 Oxygen Delivery Method Oxygen Flow Rate 05/13/23 20:16 05/13/23 20:20 05/13/23 20:25 Temperature 91.9 F L 91.9 F L 92.1 F L Pulse Rate 76 74 79 Respiratory Rate 23 24 Blood Pressure Pulse Oximetry 96 95 95 Oxygen Delivery Method Nasal Cannula Oxygen Flow Rate 2 05/13/23 20:30 05/13/23 20:35 05/13/23 20:40 Temperature 92.1 F L 92.1 F L 92.3 F L Pulse Rate 77 72 75 Respiratory Rate 26 H 19 21 Blood Pressure Pulse Oximetry 95 95 94 Oxygen Delivery Method Oxygen Flow Rate 05/13/23 20:40 05/13/23 20:45 05/13/23 20:45 Temperature 92.3 F L Pulse Rate 73 Respiratory Rate 21 Blood Pressure 103/50 L 105/52 L Pulse Oximetry 94 Oxygen Delivery Method Nasal Cannula Oxygen Flow Rate 2 05/13/23 20:50 05/13/23 20:55 05/13/23 21:00 Temperature 92.5 F L 92.5 F L 92.7 F L Pulse Rate 80 84 75 Respiratory Rate 26 H 20 30 H Blood Pressure Pulse Oximetry 95 94 95 Oxygen Delivery Method Oxygen Flow Rate 05/13/23 21:01 05/13/23 21:01 05/13/23 21:05 Temperature 92.7 F L 92.7 F L Pulse Rate 84 76 Respiratory Rate 32 H 27 H Blood Pressure 114/51 L Pulse Oximetry 95 96 Oxygen Delivery Method Oxygen Flow Rate 05/13/23 21:10 05/13/23 21:15 05/13/23 21:15 Temperature 92.8 F L 92.8 F L Pulse Rate 75 74 Respiratory Rate 25 H 30 H Blood Pressure 96/51 L Pulse Oximetry 96 98 Oxygen Delivery Method Oxygen Flow Rate 05/13/23 21:20 05/13/23 21:25 05/13/23 21:30 Temperature 93.0 F L 93.0 F L 93.2 F L Pulse Rate 79 81 90 Respiratory Rate 29 H 36 H 36 H Blood Pressure Pulse Oximetry 96 98 97 Oxygen Delivery Method Oxygen Flow Rate 05/13/23 21:31 05/13/23 21:31 05/13/23 21:35 Temperature 93.2 F L 93.4 F L Pulse Rate 81 86 Respiratory Rate 36 H 30 H Blood Pressure 133/63 Pulse Oximetry 93 98 Oxygen Delivery Method Nasal Cannula Oxygen Flow Rate 2 05/13/23 21:40 05/13/23 21:45 05/13/23 21:45 Temperature 93.4 F L 93.6 F L Pulse Rate 91 H 92 H Respiratory Rate 35 H 31 H Blood Pressure 149/70 H Pulse Oximetry 99 99 Oxygen Delivery Method Oxygen Flow Rate 05/13/23 21:50 05/13/23 21:55 05/13/23 22:00 Temperature 93.6 F L 93.7 F L 93.7 F L Pulse Rate 101 H 98 H 107 H Respiratory Rate 30 H 30 H 28 H Blood Pressure Pulse Oximetry 100 100 99 Oxygen Delivery Method Nasal Cannula Oxygen Flow Rate 2 05/13/23 22:05 05/13/23 22:10 Temperature 93.9 F L 94.1 F L Pulse Rate 100 H 102 H Respiratory Rate 31 H 27 H Blood Pressure Pulse Oximetry 99 100 Oxygen Delivery Method Nasal Cannula Oxygen Flow Rate 2 Oxygen Delivery Method Nasal Cannula Oxygen Flow Rate 2 Const Other: Laying in bed in no distress HENMT Other: oxygen 3 L NC Resp Other: normal respiratory effort, on 3 L of oxygen Cardio Other: RRR GI Other: abdomen not distended Neuro Other: w/o focal deficits Psych Other: impaired memory, appropriate mood Objective Labs 05/13/23 16:40 05/13/23 16:40 Labs: Laboratory Results - last 24 hr 05/13/23 05/13/23 05/13/23 16:40 17:50 17:50 WBC 8.1 RBC 3.97 L Hgb 11.6 L Hct 36.7 MCV 92.5 MCH 29.3 MCHC 31.7 RDW 19.9 H Plt Count 280 Neut % (Auto) 77.4 H Lymph % (Auto) 8.7 L [place] % (Auto) 12.7 Eos % (Auto) 0.2 L Baso % (Auto) 1.0 Neut # (Auto) 6300 Lymph # (Auto) 700 L [place] # (Auto) 1000 H Eos # (Auto) 0 Baso # (Auto) 100 PT 20.9 H INR 1.8 H APTT 37 H Sodium 135 L Potassium 5.0 Chloride 101 Carbon Dioxide 21 L BUN 32 H Creatinine 0.90 Estimated GFR > 60 BUN/Creatinine Ratio 35.6 H Glucose 114 H Lactate 3.5 H Calcium 9.3 Total Bilirubin 1.3 AST 74 H ALT 30 Alkaline Phosphatase 225 H Total Creatine Kinase 60 Troponin I 0.211 H* NT-Pro-B Natriuret Pep 2180 H Total Protein 8.3 H Albumin 3.7 Globulin 4.6 H Albumin/Globulin Ratio 0.8 L Lipase 102 Procalcitonin 0.11 TSH 3.36 Urine Color Homer Urine Appearance Clear Urine pH 5.0 Normal Ur Specific [place] >=1.030 H Urine Protein 2+ H Urine Glucose (UA) Negative Urine Ketones Negative Urine Occult Blood Negative Urine Nitrate Negative Urine Bilirubin Negative Urine Urobilinogen 4.0 H Ur Leukocyte Esterase Negative Urine RBC None seen Urine WBC 0-1/hpf Ur Squamous Epith Cells 5-10 /hpf H Urine Bacteria Moderate (10-30) H Hyaline Casts 1-5/lpf Urine Mucus 2+ H Ur Culture Indicated? Cult not indicated Vol Urine Centrifuged 10ml (spun) U Opiates 300ng/mL cut Negative Ur Oxycodone Screen Negative Urine Methadone Screen Negative Ur Barbiturates Screen Negative U Tricyclic Antidepress Negative Ur Phencyclidine Scrn Negative Ur Amphetamines Screen Negative U Methamphetamines Scrn Negative Ur MDMA Scrn (Ecstasy) Negative U Benzodiazepines Scrn Negative Urine Cocaine Screen Negative U Marijuana (THC) Screen Negative Urine Specific [place] Normal Ethyl Alcohol < 10 Ur Creatinine Normal 05/13/23 19:00 WBC RBC Hgb Hct MCV MCH MCHC RDW Plt Count Neut % (Auto) Lymph % (Auto) [place] % (Auto) Eos % (Auto) Baso % (Auto) Neut # (Auto) Lymph # (Auto) [place] # (Auto) Eos # (Auto) Baso # (Auto) PT INR APTT Sodium Potassium Chloride Carbon Dioxide BUN Creatinine Estimated GFR BUN/Creatinine Ratio Glucose Lactate 3.2 H Calcium Total Bilirubin AST ALT Alkaline Phosphatase Total Creatine Kinase Troponin I 0.251 H* NT-Pro-B Natriuret Pep Total Protein Albumin Globulin Albumin/Globulin Ratio Lipase Procalcitonin TSH Urine Color Urine Appearance Urine pH Ur Specific [place] Urine Protein Urine Glucose (UA) Urine Ketones Urine Occult Blood Urine Nitrate Urine Bilirubin Urine Urobilinogen Ur Leukocyte Esterase Urine RBC Urine WBC Ur Squamous Epith Cells Urine Bacteria Hyaline Casts Urine Mucus Ur Culture Indicated? Vol Urine Centrifuged U Opiates 300ng/mL cut Ur Oxycodone Screen Urine Methadone Screen Ur Barbiturates Screen U Tricyclic Antidepress Ur Phencyclidine Scrn Ur Amphetamines Screen U Methamphetamines Scrn Ur MDMA Scrn (Ecstasy) U Benzodiazepines Scrn Urine Cocaine Screen U Marijuana (THC) Screen Urine Specific [place] Ethyl Alcohol Ur Creatinine Assessment & Plan Assessment and plan (1) Bilateral lower leg cellulitis: Status: Acute (2) Chronic venous stasis: Status: Acute (3) Sepsis: Qualifiers: Sepsis acute organ dysfunction status: with acute organ dysfunction Status: Acute (4) Afib: Status: Acute (5) Elevated troponin I level: Status: Acute (6) ALMA (obstructive sleep apnea): Status: Acute Plan 1. Chronic b/l leg swelling / b/l leg cellulitis / sepsis - cefepime, vancomycin, IVFs - pressor prn 2. Hx of A-fib / HTN / elevated troponin / CHF? - She was apparently supposed to be on diuretic but doesn't take it, it seems that she only takes metoprolol - EKG - A-fib, T-wave abnormalities in multiple leads, troponins elevated, third at 6 am, w/o angina - ASA, hall monitor, lipids / A1C/ECHO pending 3. Alcoholism - son reported that she did not drink in the last 7 days 4. ALMA - not on CPAP - apparently on nocturnal oxygen instead DVT prophylaxis - Lovenox
[2023-05-13 22:48] LABS: pH VBG 7.32 (7.33-7.43)
[2023-05-13] MEDS: ACETAMINOPHEN 325 MG TABLET 650 MG PO (23:27)
[2023-05-13] MEDS: HYDROCODONE/ACET 5/325 TABLET 1 TAB PO (23:28)
[2023-05-14] VITALS (181 sets, daily range): BP systolic 80–191; BP diastolic 30–123; PULSE 79–122; RESP 9–46; TEMP 34.5–36.7; O2SAT 77–100
[2023-05-14 00:22] LABS: Lactate (Lactic Acid) 2.9 mmol/L (0.7-2.1)
--- NOTE | 2023-05-14 00:51 | PC.NURSE ---
Back of both legs.
--- NOTE | 2023-05-14 00:52 | PC.NURSE ---
Under right breast.
[2023-05-14 01:25] LABS: MRSA (Nasal) PCR Not Detected (Not Detect)
[2023-05-14 01:46] LABS: Reflexed Lactate in 2 Hours Y
[2023-05-14 02:25] LABS: Lactate 2HR (Lactic Acid Rflx) 3.2 mmol/L (0.7-2.1)
[2023-05-14 02:26] LABS: BUN Creatinine Ratio 33.7 (6-22); Blood Urea Nitrogen 32 mg/dL (7-17); Calcium 8.7 mg/dL (8.4-10.2); Carbon Dioxide 19 mmol/L (22-32); Chloride 104 mmol/L (98-107); Estimated Glomerular Filt Rate > 60 mL/min (>60); Glucose 71 mg/dL (80-110); HEMOLYSIS < 15 (0-50); Potassium 4.6 mmol/L (3.4-5.1); Sodium 135 mmol/L (137-145)
[2023-05-14 02:36] LABS: Basophils Absolute Auto 100 /uL (0-100); Basophils Percent Auto 0.7 % (0-2); Eosinophils Absolute Auto 100 /uL (0-450); Eosinophils Percent Auto 0.4 % (2-4); Hematocrit 33.4 % (36-46); Hemoglobin 10.4 g/dL (12.0-16.0); Lymphocytes Absolute Auto 400 /uL (1100-4500); Mean Corpuscular HGB Conc 31.2 % (30-36); Mean Corpuscular Hemoglobin 28.8 PG (26-34); Mean Corpuscular Volume 92.5 fL (80-100); Monocytes Absolute Auto 1500 /uL (0-900); Monocytes Percent Auto 8.5 % (3-14); Neutrophils Absolute Auto 15800 /uL (1500-7000); Neutrophils Percent Auto 88.4 % (50-75); Platelet Count 244 X10^3/uL (150-400); Red Blood Cell Count 3.61 X10^6/uL (4.0-5.2); Red Cell Distribution Width 20.2 % (11.6-14.8); White Blood Cell Count 17.8 X10^3/uL (4.5-11.0)
[2023-05-14] MEDS: SODIUM CHLORIDE 0.9% 1,000 ML 1000 ML IV ×2 (02:58→10:25)
[2023-05-14 03:03] LABS: Add Manual Diff / Slide Review SLIDE REVIEW
[2023-05-14 03:05] LABS: Anisocytosis 1+
--- NOTE | 2023-05-14 03:05 | DI.ECHO.S_ITS ---
Version: 1 Study ID: [id number] [place] [address] Name: SHAWN VALDEZ Study Date: 05/14/2023, 6: 22 AM : 1945 BP: 101 / 61 mmHg Gender: Female Height: 64 in Age: 77 Years Weight: 268 lb BSA: 2.22 mA? Ordering: JACK CARRILLO MD Referring: JACK CARRILLO MD Clinician: Cecilia Adamson Reason For Study: CONGESTIVE HEART FAILURE History: Summary Statements This is a technically difficult study complicated by off axis apical views due to chest wall tenderness. A-fib with wide QRS complexes; heart rate is 66-106 bpm. Normal LV size and wall thickness. Normal wall motion and LV systolic function with ejection fraction estimated at 50-55%. Moderately dilated right ventricle; D-shaped LV in systole and diastole consistent with RV pressure overload. Estimated PA systolic pressure is 51 mm Hg assuming RA pressure of 15 mm Hg. Aortic sclerosis without stenosis. Moderate mitral annular calcification with moderate associated central mitral regurgitation No prior study available for comparison. Procedure: A two-dimensional transthoracic echocardiogram with color flow and Doppler was performed. The study quality was technically difficult. There is no prior echocardiogram noted for this patient. Patient had bleeding infection/rash under left breast causing significant pain. Apical images were attempted in an off-axis window for pain management. The patient was in atrial fibrillation with heart rates between 66-106 bpm during the exam. Left Ventricle: The left ventricle is normal in size and wall thickness. The ejection fraction is estimated to be 50-55%. Diastolic function could not be accurately assessed due to atrial fibrillation. Right Ventricle: The right ventricle is moderately dilated. Atria: The left atrium is not well visualized. Right atrium not well visualized. Mitral Valve: The mitral valve leaflets appear mildly thickened, but open well. There is mild mitral annular calcification. There is mild to moderate mitral regurgitation. Aortic Valve: The aortic valve is trileaflet. The aortic valve is slightly calcified. The aortic valve opens well. There is no hemodynamically significant valvular aortic stenosis. No aortic regurgitation is present. Tricuspid Valve: The tricuspid valve is not well visualized, but is grossly normal. There is moderate tricuspid regurgitation. The right ventricular systolic pressure is estimated to be at least 51 mmHg based on an estimated right atrial pressure of 15 mm Hg. Pulmonic Valve: The pulmonic valve is not well visualized. There is mild pulmonic regurgitation. Great Vessels: The aortic root is normal size. The dimensions of the ascending aorta are normal. The IVC is dilated (diameter is greater than 2.1 cm) and it collapses less than 50% with a sniff. This suggests a high right atrial pressure of 15 mm Hg. Pericardium/ Pleura: There is no pericardial effusion. There is no pleural effusion. 2D and M-Mode Measurements and Calculations LVIDd: 4.2 cm LVOT diam: 1.96 cm LVIDs: 2.8 cm Ao root diam: 3.2 cm IVSd: 0.98 cm asc Aorta Diam: 3.2 cm LVPWd: 0.76 cm Ao Arch Diam (Prox Trans): 2.6 cm LV dean. diameter/BSA (cm/m^2): 1.88 LV sys. diameter/BSA (cm/m^2): 1.25 LA A4 area: 21.5 bedspring assembler? IVC diam: 2.6 cm LA length (vol): 5.7 cm Doppler Measurements and Calculations MV E max gonzalez: 70.8 cm/sec MV dec time: 0.11 sec MV A max gonzalez: 1.00 cm/sec MV E/A: 70.7 TR max gonzalez: 301.3 cm/sec PA mean P.18 mmHg TR max P.3 mmHg PA V2 max: 68.8 cm/sec Electronically signed by: Keyla Hernandez M.D. 05/14/2023, 12: 48 PM
--- NOTE | 2023-05-14 03:16 | PC.NURSE ---
Addendum entered by Maryanne Norwood R.N. 05/14/23 06:32: Patients BP has been 90-100s/60s MAP > 65 since bolus, total 125ml concentrated urine since admit. Patient remains restless without chest pain or dyspnea. Vancomycin infusing. Echo in progress. Original Note: Admit/Night Notes-Patient admitted to ICU room 226 at 2300. Oriented to person, birthday, and situation, not place. Able to follow directions and answer most simple questions, son at bedside completing admit assessment with Paty SELLERS. Bear Hugger on, core temp up to 96.1, patient felt hot requested it to be removed, skin is cool to touch. A-fib RVR 100-120, initial BP 121/62, started to slowly trend down, 73/48(56) at 0200, repeat Troponin 0.430, lactate 2.9, then increased to 3.2, WBC up 17.8, repeat EKG done, UOP ~ 75ml over 3hrs. Increased confusion and restlessness. All this information reported to Hospitalist, 1 liter NS bolus ordered and infused.
[2023-05-14] MEDS: ASPIRIN EC 325 MG TABLET PO (03:33)
[2023-05-14] MEDS: VANCOMYCIN 1,000 MG/200 ML PIGGYBACK 140 MG IV ×2 (05:54→18:04)
[2023-05-14 06:32] LABS: Hemoglobin A1C% w Est Avg Glu 6.1 % (4.0-6.0)
[2023-05-14 07:12] LABS: Cholesterol 68 mg/dL (140-199); HDL Cholesterol 15 mg/dL (40-60); LDL Cholesterol Calculated 39 mg/dL (<100); Lactate (Lactic Acid) 2.4 mmol/L (0.7-2.1); Triglycerides 69 mg/dL (35-150)
[2023-05-14 07:25] LABS: NT-proBNP (BNP-Adult 18+) 3430 pg/mL (<450)
[2023-05-14 07:26] LABS: Troponin I 0.695 ng/mL (0.01-0.034)
[2023-05-14 08:01] LABS: Reflexed Lactate in 2 Hours Y
[2023-05-14 08:36] LABS: Lactate 2HR (Lactic Acid Rflx) 2.6 mmol/L (0.7-2.1)
[2023-05-14] MEDS: ENOXAPARIN 40 MG/0.4 ML SYRINGE SUBCUT (08:58)
[2023-05-14] MEDS: GABAPENTIN 300 MG CAPSULE PO ×2 (08:58→20:51)
[2023-05-14] MEDS: HYDROCODONE/ACET 5/325 TABLET 1 TAB PO ×2 (08:58→15:31)
[2023-05-14] MEDS: OXYCODONE IR 10 MG TABLET PO (09:10)
[2023-05-14] MEDS: CEFEPIME 1 GM in SODIUM CHLORIDE 0.9% 100 ML IV ×2 (10:24→22:12)
[2023-05-14] MEDS: SODIUM CHLORIDE 0.9% 1,000 ML 125 ML IV (11:52)
[2023-05-14] MEDS: NOREPINEPHRINE BITARTRATE/D5W 4 MG/250 ML PLAST..BAG 45.6 MG IV (12:11)
--- NOTE | 2023-05-14 13:20 | DI.RAD.S_ITS ---
PROCEDURE: XR CHEST FOR PICC 1V INDICATIONS: PICC line placement COMPARISON: None. FINDINGS: PICC was placed by the intravenous therapy team from the right side. Fluoroscopic spot film demonstrates the tip of PICC projecting to the area of distal SVC. IMPRESSION: Tip of PICC projects to the area of distal SVC. Dictated by: Aaliyah Ann MD, PhD on 05/14/2023 at 14:12 Approved by: Aaliyah Ann MD, PhD on 05/14/2023 at 14:13
[2023-05-14] MEDS: FUROSEMIDE 40 MG/4 ML VIAL IV (13:58)
--- NOTE | 2023-05-14 14:10 | PM.PN.1 ---
Subjective Subjective Interval history: 77 F with pmh of HTN, prior NSTEMI (but clean coronaries on [facility] 10/2022), afib, pulm HTN, CHFpEF, ALMA who presented with 2-3 days of worsening leg pain. She reports she is slow and confused today. Her BP dropped this morning, but did not respond to fluid boluses. She was started on levophed for septic shock. Developed worsening dyspnea, hypoxia when flat for PICC, improved with sitting up but was ordered for furosemide x1 dose with slight congestive appearance on CXR and after multiple fluid boluses. Exam Vital Signs (past 8 hours): - 05/14/23 07:00 05/14/23 07:00 05/14/23 07:05 Temperature 95.4 F L 95.4 F L Pulse Rate 98 H 92 H Respiratory Rate 29 H 18 Blood Pressure 86/51 L Pulse Oximetry 96 97 Oxygen Delivery Method 05/14/23 07:10 05/14/23 07:15 05/14/23 07:20 Temperature 95.4 F L 95.4 F L 95.4 F L Pulse Rate 90 92 H 87 Respiratory Rate 19 25 H 20 Blood Pressure Pulse Oximetry 99 96 95 Oxygen Delivery Method 05/14/23 07:25 05/14/23 07:30 05/14/23 07:30 Temperature 95.4 F L 95.4 F L Pulse Rate 92 H 94 H Respiratory Rate 21 35 H Blood Pressure 96/53 L Pulse Oximetry 96 96 Oxygen Delivery Method 05/14/23 07:35 05/14/23 07:40 05/14/23 07:45 Temperature 95.4 F L 95.4 F L 95.4 F L Pulse Rate 91 H 83 90 Respiratory Rate 20 17 31 H Blood Pressure Pulse Oximetry 97 96 92 Oxygen Delivery Method 05/14/23 07:50 05/14/23 07:55 05/14/23 08:00 Temperature 95.4 F L 95.4 F L 95.4 F L Pulse Rate 95 H 96 H 91 H Respiratory Rate 21 32 H 17 Blood Pressure Pulse Oximetry 96 95 96 Oxygen Delivery Method 05/14/23 08:00 05/14/23 08:05 05/14/23 08:10 Temperature 96.8 F L 95.4 F L Pulse Rate 95 H 99 H Respiratory Rate 32 H 31 H Blood Pressure 91/56 L 104/55 L Pulse Oximetry 93 94 Oxygen Delivery Method 05/14/23 08:15 05/14/23 08:20 05/14/23 08:25 Temperature 95.4 F L 95.4 F L 95.4 F L Pulse Rate 94 H 96 H 102 H Respiratory Rate 32 H 46 H 25 H Blood Pressure Pulse Oximetry 94 92 96 Oxygen Delivery Method 05/14/23 08:27 05/14/23 08:30 05/14/23 08:30 Temperature 95.4 F L Pulse Rate 98 H Respiratory Rate 24 Blood Pressure 103/54 L Pulse Oximetry 96 Oxygen Delivery Method Nasal Cannula 05/14/23 08:35 05/14/23 08:40 05/14/23 08:45 Temperature 95.4 F L 95.4 F L 95.4 F L Pulse Rate 101 H 104 H 100 H Respiratory Rate 22 21 24 Blood Pressure Pulse Oximetry 96 96 77 L Oxygen Delivery Method 05/14/23 08:50 05/14/23 08:55 05/14/23 09:00 Temperature 95.4 F L 95.4 F L Pulse Rate 98 H 88 Respiratory Rate 24 20 Blood Pressure 100/58 L Pulse Oximetry 97 97 Oxygen Delivery Method 05/14/23 09:00 05/14/23 09:05 05/14/23 09:10 Temperature 95.4 F L 95.4 F L 95.4 F L Pulse Rate 91 H 93 H 93 H Respiratory Rate 20 30 H 23 Blood Pressure Pulse Oximetry 91 89 L 92 Oxygen Delivery Method 05/14/23 09:15 05/14/23 09:20 05/14/23 09:25 Temperature 95.4 F L 95.4 F L 95.4 F L Pulse Rate 99 H 93 H 100 H Respiratory Rate 28 H 18 25 H Blood Pressure Pulse Oximetry 92 95 86 L Oxygen Delivery Method 05/14/23 09:30 05/14/23 09:30 05/14/23 09:33 Temperature 95.4 F L Pulse Rate 96 H Respiratory Rate 25 H Blood Pressure 90/55 L 97/53 L Pulse Oximetry 88 L Oxygen Delivery Method 05/14/23 09:33 05/14/23 09:35 05/14/23 09:40 Temperature 95.4 F L 95.4 F L 95.4 F L Pulse Rate 95 H 100 H 90 Respiratory Rate 24 19 22 Blood Pressure Pulse Oximetry 86 L 95 97 Oxygen Delivery Method 05/14/23 09:45 05/14/23 09:50 05/14/23 09:55 Temperature 95.2 F L 95.2 F L 95.2 F L Pulse Rate 94 H 92 H 101 H Respiratory Rate 21 20 24 Blood Pressure Pulse Oximetry 95 94 93 Oxygen Delivery Method 05/14/23 10:00 05/14/23 10:01 05/14/23 10:01 Temperature 95.2 F L 95.2 F L Pulse Rate 102 H 96 H Respiratory Rate 17 21 Blood Pressure 86/30 L Pulse Oximetry 97 97 Oxygen Delivery Method 05/14/23 10:05 05/14/23 10:10 05/14/23 10:15 Temperature 95.2 F L 95.2 F L 95.2 F L Pulse Rate 95 H 95 H 87 Respiratory Rate 21 19 14 Blood Pressure Pulse Oximetry 93 96 97 Oxygen Delivery Method 05/14/23 10:20 05/14/23 10:25 05/14/23 10:30 Temperature 95.2 F L 95.2 F L Pulse Rate 87 93 H Respiratory Rate 17 21 Blood Pressure 90/48 L Pulse Oximetry 98 97 Oxygen Delivery Method 05/14/23 10:30 05/14/23 10:35 05/14/23 10:40 Temperature 95.2 F L 95.0 F L 95.0 F L Pulse Rate 94 H 84 90 Respiratory Rate 18 17 14 Blood Pressure Pulse Oximetry 97 99 98 Oxygen Delivery Method 05/14/23 10:45 05/14/23 10:50 05/14/23 10:55 Temperature 95.0 F L 95.0 F L 94.8 F L Pulse Rate 87 87 97 H Respiratory Rate 14 18 26 H Blood Pressure Pulse Oximetry 99 99 93 Oxygen Delivery Method 05/14/23 11:00 05/14/23 11:00 05/14/23 11:03 Temperature 94.8 F L Pulse Rate 91 H Respiratory Rate 18 Blood Pressure 88/50 L 88/52 L Pulse Oximetry 88 L Oxygen Delivery Method 05/14/23 11:03 05/14/23 11:04 05/14/23 11:05 Temperature 94.8 F L 94.8 F L Pulse Rate 102 H 93 H Respiratory Rate 22 32 H Blood Pressure 104/55 L Pulse Oximetry 97 96 Oxygen Delivery Method 05/14/23 11:05 05/14/23 11:10 05/14/23 11:15 Temperature 94.8 F L 94.8 F L 94.6 F L Pulse Rate 102 H 93 H 89 Respiratory Rate 17 14 17 Blood Pressure Pulse Oximetry 95 98 99 Oxygen Delivery Method 05/14/23 11:20 05/14/23 11:25 05/14/23 11:30 Temperature 94.6 F L 94.6 F L Pulse Rate 89 86 Respiratory Rate 19 15 Blood Pressure 96/50 L Pulse Oximetry 100 100 Oxygen Delivery Method 05/14/23 11:30 05/14/23 11:35 05/14/23 11:40 Temperature 94.6 F L 94.5 F L 94.5 F L Pulse Rate 82 83 80 Respiratory Rate 11 L 12 14 Blood Pressure Pulse Oximetry 98 99 98 Oxygen Delivery Method 05/14/23 11:45 05/14/23 11:50 05/14/23 11:55 Temperature 94.5 F L 94.5 F L 94.3 F L Pulse Rate 85 85 82 Respiratory Rate 14 12 12 Blood Pressure Pulse Oximetry 99 99 99 Oxygen Delivery Method 05/14/23 12:00 05/14/23 12:00 05/14/23 12:02 Temperature 94.3 F L Pulse Rate 80 Respiratory Rate 14 Blood Pressure 84/45 L 80/41 L Pulse Oximetry 100 Oxygen Delivery Method 05/14/23 12:02 05/14/23 12:05 05/14/23 12:10 Temperature 94.3 F L 94.3 F L 94.3 F L Pulse Rate 85 80 81 Respiratory Rate 15 11 L 12 Blood Pressure Pulse Oximetry 99 98 99 Oxygen Delivery Method 05/14/23 12:15 05/14/23 12:20 05/14/23 12:25 Temperature 94.1 F L 94.1 F L 94.1 F L Pulse Rate 80 79 97 H Respiratory Rate 12 11 L 20 Blood Pressure Pulse Oximetry 99 98 82 L Oxygen Delivery Method 05/14/23 12:27 05/14/23 12:30 05/14/23 12:31 Temperature 94.1 F L Pulse Rate 103 H Respiratory Rate 31 H Blood Pressure 92/54 L Pulse Oximetry 81 L Oxygen Delivery Method Nasal Cannula 05/14/23 12:31 05/14/23 12:35 05/14/23 12:40 Temperature 94.1 F L 94.1 F L 94.1 F L Pulse Rate 105 H 104 H 105 H Respiratory Rate 24 30 H 31 H Blood Pressure Pulse Oximetry 85 L 90 L 90 L Oxygen Delivery Method 05/14/23 12:45 05/14/23 12:50 05/14/23 12:55 Temperature 94.1 F L 94.1 F L 94.1 F L Pulse Rate 103 H 107 H 105 H Respiratory Rate 24 25 H 20 Blood Pressure Pulse Oximetry 84 L 90 L 96 Oxygen Delivery Method 05/14/23 13:00 05/14/23 13:00 05/14/23 13:03 Temperature 94.1 F L Pulse Rate 105 H Respiratory Rate 13 Blood Pressure 178/123 H 191/99 H Pulse Oximetry 96 Oxygen Delivery Method 05/14/23 13:03 05/14/23 13:05 05/14/23 13:10 Temperature 94.3 F L 94.3 F L 94.3 F L Pulse Rate 101 H 107 H 101 H Respiratory Rate 18 21 20 Blood Pressure Pulse Oximetry 78 L 89 L 84 L Oxygen Delivery Method 05/14/23 13:15 05/14/23 13:15 05/14/23 13:20 Temperature 94.3 F L 94.3 F L Pulse Rate 107 H 107 H Respiratory Rate 16 17 Blood Pressure 168/89 H Pulse Oximetry 85 L 83 L Oxygen Delivery Method 05/14/23 13:25 05/14/23 13:30 05/14/23 13:31 Temperature 94.3 F L 94.3 F L 94.3 F L Pulse Rate 109 H 109 H 108 H Respiratory Rate 17 30 H 24 Blood Pressure Pulse Oximetry 82 L 88 L 90 L Oxygen Delivery Method 05/14/23 13:31 05/14/23 13:35 05/14/23 13:40 Temperature 94.5 F L 94.5 F L Pulse Rate 100 H 108 H Respiratory Rate 13 14 Blood Pressure 133/87 Pulse Oximetry 89 L 88 L Oxygen Delivery Method Oxygen Delivery Method Nasal Cannula Oxygen Flow Rate 4 Narrative Exam Narrative: Gen: AxO x3, no acute distress, ill appearing and mildly confused CV: no mr/g, regular rate with irregularly irregular rhythm Pulm: decreased breath sounds b/l bases, poor respiratory effort Abd: S NT ND Ext: diffuse LE edema, b/l LE erythema, slight warmth with chronic wounds Objective Labs 05/14/23 02:03 05/14/23 02:03 Labs: Laboratory Results - last 24 hr 05/13/23 05/13/23 05/13/23 16:40 17:50 17:50 WBC 8.1 RBC 3.97 L Hgb 11.6 L Hct 36.7 MCV 92.5 MCH 29.3 MCHC 31.7 RDW 19.9 H Plt Count 280 Neut % (Auto) 77.4 H Lymph % (Auto) 8.7 L Yates % (Auto) 12.7 Eos % (Auto) 0.2 L Baso % (Auto) 1.0 Neut # (Auto) 6300 Lymph # (Auto) 700 L Yates # (Auto) 1000 H Eos # (Auto) 0 Baso # (Auto) 100 RBC Morphology Anisocytosis PT 20.9 H INR 1.8 H APTT 37 H VBG pH Sodium 135 L Potassium 5.0 Chloride 101 Carbon Dioxide 21 L BUN 32 H Creatinine 0.90 Estimated GFR > 60 BUN/Creatinine Ratio 35.6 H Glucose 114 H Hemoglobin A1c Lactate 3.5 H Calcium 9.3 Total Bilirubin 1.3 AST 74 H ALT 30 Alkaline Phosphatase 225 H Total Creatine Kinase 60 Troponin I 0.211 H* NT-Pro-B Natriuret Pep 2180 H Total Protein 8.3 H Albumin 3.7 Globulin 4.6 H Albumin/Globulin Ratio 0.8 L Triglycerides Cholesterol LDL Cholesterol, Calc HDL Cholesterol Lipase 102 Procalcitonin 0.11 TSH 3.36 Urine Color [place] Urine Appearance Clear Urine pH 5.0 Normal Ur Specific [place] >=1.030 H Urine Protein 2+ H Urine Glucose (UA) Negative Urine Ketones Negative Urine Occult Blood Negative Urine Nitrate Negative Urine Bilirubin Negative Urine Urobilinogen 4.0 H Ur Leukocyte Esterase Negative Urine RBC None seen Urine WBC 0-1/hpf Ur Squamous Epith Cells 5-10 /hpf H Urine Bacteria Moderate (10-30) H Hyaline Casts 1-5/lpf Urine Mucus 2+ H Ur Culture Indicated? Cult not indicated Vol Urine Centrifuged 10ml (spun) Nasal Screen MRSA (PCR) U Opiates 300ng/mL cut Negative Ur Oxycodone Screen Negative Urine Methadone Screen Negative Ur Barbiturates Screen Negative U Tricyclic Antidepress Negative Ur Phencyclidine Scrn Negative Ur Amphetamines Screen Negative U Methamphetamines Scrn Negative Ur MDMA Scrn (Ecstasy) Negative U Benzodiazepines Scrn Negative Urine Cocaine Screen Negative U Marijuana (THC) Screen Negative Urine Specific [place] Normal Ethyl Alcohol < 10 Ur Creatinine Normal 05/13/23 05/13/23 05/13/23 18:31 19:00 23:54 WBC RBC Hgb Hct MCV MCH MCHC RDW Plt Count Neut % (Auto) Lymph % (Auto) Yates % (Auto) Eos % (Auto) Baso % (Auto) Neut # (Auto) Lymph # (Auto) Yates # (Auto) Eos # (Auto) Baso # (Auto) RBC Morphology Anisocytosis PT INR APTT VBG pH 7.32 L Sodium Potassium Chloride Carbon Dioxide BUN Creatinine Estimated GFR BUN/Creatinine Ratio Glucose Hemoglobin A1c Lactate 3.2 H 2.9 H Calcium Total Bilirubin AST ALT Alkaline Phosphatase Total Creatine Kinase Troponin I 0.251 H* 0.430 H* NT-Pro-B Natriuret Pep Total Protein Albumin Globulin Albumin/Globulin Ratio Triglycerides Cholesterol LDL Cholesterol, Calc HDL Cholesterol Lipase Procalcitonin TSH Urine Color Urine Appearance Urine pH Ur Specific [place] Urine Protein Urine Glucose (UA) Urine Ketones Urine Occult Blood Urine Nitrate Urine Bilirubin Urine Urobilinogen Ur Leukocyte Esterase Urine RBC Urine WBC Ur Squamous Epith Cells Urine Bacteria Hyaline Casts Urine Mucus Ur Culture Indicated? Vol Urine Centrifuged Nasal Screen MRSA (PCR) U Opiates 300ng/mL cut Ur Oxycodone Screen Urine Methadone Screen Ur Barbiturates Screen U Tricyclic Antidepress Ur Phencyclidine Scrn Ur Amphetamines Screen U Methamphetamines Scrn Ur MDMA Scrn (Ecstasy) U Benzodiazepines Scrn Urine Cocaine Screen U Marijuana (THC) Screen Urine Specific [place] Ethyl Alcohol Ur Creatinine 05/14/23 05/14/23 05/14/23 00:12 02:03 06:10 WBC 17.8 H D RBC 3.61 L Hgb 10.4 L Hct 33.4 L MCV 92.5 MCH 28.8 MCHC 31.2 RDW 20.2 H Plt Count 244 Neut % (Auto) 88.4 H Lymph % (Auto) 2.0 L Yates % (Auto) 8.5 Eos % (Auto) 0.4 L Baso % (Auto) 0.7 Neut # (Auto) 95599 H Lymph # (Auto) 400 L Yates # (Auto) 1500 H Eos # (Auto) 100 Baso # (Auto) 100 RBC Morphology See below Anisocytosis 1+ H PT INR APTT VBG pH Sodium 135 L Potassium 4.6 Chloride 104 Carbon Dioxide 19 L BUN 32 H Creatinine 0.95 Estimated GFR > 60 BUN/Creatinine Ratio 33.7 H Glucose 71 L Hemoglobin A1c 6.1 H Lactate 3.2 H 2.4 H Calcium 8.7 Total Bilirubin AST ALT Alkaline Phosphatase Total Creatine Kinase Troponin I 0.695 H* NT-Pro-B Natriuret Pep 3430 H Total Protein Albumin Globulin Albumin/Globulin Ratio Triglycerides 69 Cholesterol 68 L LDL Cholesterol, Calc 39 HDL Cholesterol 15 L Lipase Procalcitonin TSH Urine Color Urine Appearance Urine pH Ur Specific [place] Urine Protein Urine Glucose (UA) Urine Ketones Urine Occult Blood Urine Nitrate Urine Bilirubin Urine Urobilinogen Ur Leukocyte Esterase Urine RBC Urine WBC Ur Squamous Epith Cells Urine Bacteria Hyaline Casts Urine Mucus Ur Culture Indicated? Vol Urine Centrifuged Nasal Screen MRSA (PCR) Not detected U Opiates 300ng/mL cut Ur Oxycodone Screen Urine Methadone Screen Ur Barbiturates Screen U Tricyclic Antidepress Ur Phencyclidine Scrn Ur Amphetamines Screen U Methamphetamines Scrn Ur MDMA Scrn (Ecstasy) U Benzodiazepines Scrn Urine Cocaine Screen U Marijuana (THC) Screen Urine Specific [place] Ethyl Alcohol Ur Creatinine 05/14/23 08:17 WBC RBC Hgb Hct MCV MCH MCHC RDW Plt Count Neut % (Auto) Lymph % (Auto) Yates % (Auto) Eos % (Auto) Baso % (Auto) Neut # (Auto) Lymph # (Auto) Yates # (Auto) Eos # (Auto) Baso # (Auto) RBC Morphology Anisocytosis PT INR APTT VBG pH Sodium Potassium Chloride Carbon Dioxide BUN Creatinine Estimated GFR BUN/Creatinine Ratio Glucose Hemoglobin A1c Lactate 2.6 H Calcium Total Bilirubin AST ALT Alkaline Phosphatase Total Creatine Kinase Troponin I NT-Pro-B Natriuret Pep Total Protein Albumin Globulin Albumin/Globulin Ratio Triglycerides Cholesterol LDL Cholesterol, Calc HDL Cholesterol Lipase Procalcitonin TSH Urine Color Urine Appearance Urine pH Ur Specific [place] Urine Protein Urine Glucose (UA) Urine Ketones Urine Occult Blood Urine Nitrate Urine Bilirubin Urine Urobilinogen Ur Leukocyte Esterase Urine RBC Urine WBC Ur Squamous Epith Cells Urine Bacteria Hyaline Casts Urine Mucus Ur Culture Indicated? Vol Urine Centrifuged Nasal Screen MRSA (PCR) U Opiates 300ng/mL cut Ur Oxycodone Screen Urine Methadone Screen Ur Barbiturates Screen U Tricyclic Antidepress Ur Phencyclidine Scrn Ur Amphetamines Screen U Methamphetamines Scrn Ur MDMA Scrn (Ecstasy) U Benzodiazepines Scrn Urine Cocaine Screen U Marijuana (THC) Screen Urine Specific [place] Ethyl Alcohol Ur Creatinine PFSH Social History household members: family Smoking Status: Never smoker Assessment & Plan Assessment & Plan narrative: 1. Presumed septic shock with acute metabolic encephalopathy, acute respiratory failure with hypoxia, hypotension, elevated bilirubin - continue cefepime and vanco per pharmacy. If cultures remain negative can likely discontinue vanco with negative MRSA nasal swab in the next few days. - have stopped IV fluids due to pulmonary congestion she received 3.5 L approx of fluid boluses, wean from levophed as tolerated goal MAP >65. - source possible cystitis but more likely b/l LE cellulitis. No rapid progression currently or crepitus to suggest necrotizing infection - follow up blood cultures, urine cultures. 2. Myocarial injury - echo with normal wall motion and EF around 55%. - trend troponin until downtrending, currently 0.695. Had LHC on 10/2022 which showed clean coronaries per outside records received. - from her last hospitalization it appears as if she is supposed to be on xarelto, will start eliquis. 3. possible acute on chronic diastolic heart failure - diurese prn for now with shock. Given 40 mg IV lasix x1 today. - is also supposed to be on furosemide and aldactone from outside medication records. 4. chronic atrial fibrillation - start eliquis as noted above - holding home metoprolol for now 5. HTN - holding home metoprolol and diuretics in setting of possible septic shock. 6. Obesity - The patient is at much higher risk for medical and surgical complications because of their obesity. This increases the difficulty and complexity of medical and surgical interventions and increases the chances of poor outcomes such as morbidity and mortality. Code: DNR, surrogate is patient's son DVT: start eliquis as noted above Dispo: remains ICU I have utilized all available immediate resources to obtain, update, or review the patient's current medications. I spent 40 minutes providing critical care management this patient. This excludes time spent in performing separately billed procedures. Quality VTE Deep Vein Thrombosis/Pulmonary Embolism Present on Admission: No
--- NOTE | 2023-05-14 14:41 | P.TELICUCN_ITS ---
History of Present Illness Consult details IF CAMERA ACTIVATED, patient seen via real-time interactive audiovisual communication: Camera activated Chief complaint: bilateral leg swelling, cracking Reason for consult: Shock Requesting provider: Bear Almeida Consent obtained for tele-bargeman care: Yes Patient Location: ICU Provider location (State): [place] Other participants/roles: Bedside RN Wanda Narrative: Patient is a 77 year old morbidly obese female with history of CAD, A fib on eliqiuis, pulmonary hypertension, and ALMA who presents with worsening LE swelling and sepsis attributed to LE cellulitis. On presentation, she received IVF bolus and started on vanc/cefepime. Today patient developed hypotension which a PICC line was placed and started levophed 0.04 mcg/kg/min. TTE showed dilated RV w/ preserved LV and flattening septum. Concern raises for RV failure which patient received lasix 40 mg IV. Phosphorus Processing Supervisor consulted for shock management. [facility] Social History household members: family Smoking Status: Never smoker Current Medications Current Medications Medications: Home Medications gabapentin 300 mg capsule 300 mg PO QID 05/13/23 [History Confirmed 05/13/23] metoprolol tartrate 25 mg tablet 75 mg PO BID 05/13/23 [History Confirmed 05/13/23] Visit Medications (administered) Generic Name Dose Route Start Last Admin Trade Name Freq PRN Reason Stop Dose Admin Acetaminophen 650 mg 05/13/23 22:32 05/13/23 23:27 Acetaminophen 325 Mg Tablet PO 650 mg Q6H PRN Administration Fever/Mild Pain (1-3) Hydrocodone Bitart/Acetaminophen 1 tab 05/13/23 22:32 05/14/23 08:58 Hydrocodone/Acet 5/325 Tablet PO 1 tab Q4H PRN Administration Pain, Moderate (4-6) Enoxaparin Sodium 40 mg 05/14/23 09:00 05/14/23 08:58 Enoxaparin 40 Mg/0.4 Ml Syringe SUBCUT 40 mg BID VERO Administration Gabapentin 300 mg 05/14/23 09:00 05/14/23 13:58 Gabapentin 300 Mg Capsule PO Not Given QID VERO Cefepime HCl 1 gm/ Sodium 100 mls @ 200 mls/hr 05/14/23 09:45 05/14/23 10:24 Chloride IV 200 mls/hr Q12H VERO Administration Vancomycin HCl 1,000 mg in 200 mls @ 140 mls/hr 05/14/23 06:30 05/14/23 07:32 Vancomycin IV Infused Q12H VERO Infusion NOREPINEPHRINE BITARTRATE/D5W 4 mg in 250 mls @ 45.6 mls/hr 05/14/23 12:02 05/14/23 13:21 Levophed IV 0.04 mcg/kg/min TITRATE VERO 18.24 mls/hr Titration Protocol 0.1 MCG/KG/MIN Oxycodone HCl 10 mg 05/14/23 09:01 05/14/23 09:10 Oxycodone Ir 10 Mg Tablet PO 10 mg Q3HR PRN Administration Pain, Severe (7-10) Exam Vital Signs (past 8 hours): - 05/14/23 07:00 05/14/23 07:00 05/14/23 07:05 Temperature 95.4 F L 95.4 F L Pulse Rate 98 H 92 H Respiratory Rate 29 H 18 Blood Pressure 86/51 L Pulse Oximetry 96 97 Oxygen Delivery Method 05/14/23 07:10 05/14/23 07:15 05/14/23 07:20 Temperature 95.4 F L 95.4 F L 95.4 F L Pulse Rate 90 92 H 87 Respiratory Rate 19 25 H 20 Blood Pressure Pulse Oximetry 99 96 95 Oxygen Delivery Method 05/14/23 07:25 05/14/23 07:30 05/14/23 07:30 Temperature 95.4 F L 95.4 F L Pulse Rate 92 H 94 H Respiratory Rate 21 35 H Blood Pressure 96/53 L Pulse Oximetry 96 96 Oxygen Delivery Method 05/14/23 07:35 05/14/23 07:40 05/14/23 07:45 Temperature 95.4 F L 95.4 F L 95.4 F L Pulse Rate 91 H 83 90 Respiratory Rate 20 17 31 H Blood Pressure Pulse Oximetry 97 96 92 Oxygen Delivery Method 05/14/23 07:50 05/14/23 07:55 05/14/23 08:00 Temperature 95.4 F L 95.4 F L 95.4 F L Pulse Rate 95 H 96 H 91 H Respiratory Rate 21 32 H 17 Blood Pressure Pulse Oximetry 96 95 96 Oxygen Delivery Method 05/14/23 08:00 05/14/23 08:05 05/14/23 08:10 Temperature 96.8 F L 95.4 F L Pulse Rate 95 H 99 H Respiratory Rate 32 H 31 H Blood Pressure 91/56 L 104/55 L Pulse Oximetry 93 94 Oxygen Delivery Method 05/14/23 08:15 05/14/23 08:20 05/14/23 08:25 Temperature 95.4 F L 95.4 F L 95.4 F L Pulse Rate 94 H 96 H 102 H Respiratory Rate 32 H 46 H 25 H Blood Pressure Pulse Oximetry 94 92 96 Oxygen Delivery Method 05/14/23 08:27 05/14/23 08:30 05/14/23 08:30 Temperature 95.4 F L Pulse Rate 98 H Respiratory Rate 24 Blood Pressure 103/54 L Pulse Oximetry 96 Oxygen Delivery Method Nasal Cannula 05/14/23 08:35 05/14/23 08:40 05/14/23 08:45 Temperature 95.4 F L 95.4 F L 95.4 F L Pulse Rate 101 H 104 H 100 H Respiratory Rate 22 21 24 Blood Pressure Pulse Oximetry 96 96 77 L Oxygen Delivery Method 05/14/23 08:50 05/14/23 08:55 05/14/23 09:00 Temperature 95.4 F L 95.4 F L Pulse Rate 98 H 88 Respiratory Rate 24 20 Blood Pressure 100/58 L Pulse Oximetry 97 97 Oxygen Delivery Method 05/14/23 09:00 05/14/23 09:05 05/14/23 09:10 Temperature 95.4 F L 95.4 F L 95.4 F L Pulse Rate 91 H 93 H 93 H Respiratory Rate 20 30 H 23 Blood Pressure Pulse Oximetry 91 89 L 92 Oxygen Delivery Method 05/14/23 09:15 05/14/23 09:20 05/14/23 09:25 Temperature 95.4 F L 95.4 F L 95.4 F L Pulse Rate 99 H 93 H 100 H Respiratory Rate 28 H 18 25 H Blood Pressure Pulse Oximetry 92 95 86 L Oxygen Delivery Method 05/14/23 09:30 05/14/23 09:30 05/14/23 09:33 Temperature 95.4 F L Pulse Rate 96 H Respiratory Rate 25 H Blood Pressure 90/55 L 97/53 L Pulse Oximetry 88 L Oxygen Delivery Method 05/14/23 09:33 05/14/23 09:35 05/14/23 09:40 Temperature 95.4 F L 95.4 F L 95.4 F L Pulse Rate 95 H 100 H 90 Respiratory Rate 24 19 22 Blood Pressure Pulse Oximetry 86 L 95 97 Oxygen Delivery Method 05/14/23 09:45 05/14/23 09:50 05/14/23 09:55 Temperature 95.2 F L 95.2 F L 95.2 F L Pulse Rate 94 H 92 H 101 H Respiratory Rate 21 20 24 Blood Pressure Pulse Oximetry 95 94 93 Oxygen Delivery Method 05/14/23 10:00 05/14/23 10:01 05/14/23 10:01 Temperature 95.2 F L 95.2 F L Pulse Rate 102 H 96 H Respiratory Rate 17 21 Blood Pressure 86/30 L Pulse Oximetry 97 97 Oxygen Delivery Method 05/14/23 10:05 05/14/23 10:10 05/14/23 10:15 Temperature 95.2 F L 95.2 F L 95.2 F L Pulse Rate 95 H 95 H 87 Respiratory Rate 21 19 14 Blood Pressure Pulse Oximetry 93 96 97 Oxygen Delivery Method 05/14/23 10:20 05/14/23 10:25 05/14/23 10:30 Temperature 95.2 F L 95.2 F L Pulse Rate 87 93 H Respiratory Rate 17 21 Blood Pressure 90/48 L Pulse Oximetry 98 97 Oxygen Delivery Method 05/14/23 10:30 05/14/23 10:35 05/14/23 10:40 Temperature 95.2 F L 95.0 F L 95.0 F L Pulse Rate 94 H 84 90 Respiratory Rate 18 17 14 Blood Pressure Pulse Oximetry 97 99 98 Oxygen Delivery Method 05/14/23 10:45 05/14/23 10:50 05/14/23 10:55 Temperature 95.0 F L 95.0 F L 94.8 F L Pulse Rate 87 87 97 H Respiratory Rate 14 18 26 H Blood Pressure Pulse Oximetry 99 99 93 Oxygen Delivery Method 05/14/23 11:00 05/14/23 11:00 05/14/23 11:03 Temperature 94.8 F L Pulse Rate 91 H Respiratory Rate 18 Blood Pressure 88/50 L 88/52 L Pulse Oximetry 88 L Oxygen Delivery Method 05/14/23 11:03 05/14/23 11:04 05/14/23 11:05 Temperature 94.8 F L 94.8 F L Pulse Rate 102 H 93 H Respiratory Rate 22 32 H Blood Pressure 104/55 L Pulse Oximetry 97 96 Oxygen Delivery Method 05/14/23 11:05 05/14/23 11:10 05/14/23 11:15 Temperature 94.8 F L 94.8 F L 94.6 F L Pulse Rate 102 H 93 H 89 Respiratory Rate 17 14 17 Blood Pressure Pulse Oximetry 95 98 99 Oxygen Delivery Method 05/14/23 11:20 05/14/23 11:25 05/14/23 11:30 Temperature 94.6 F L 94.6 F L Pulse Rate 89 86 Respiratory Rate 19 15 Blood Pressure 96/50 L Pulse Oximetry 100 100 Oxygen Delivery Method 05/14/23 11:30 05/14/23 11:35 05/14/23 11:40 Temperature 94.6 F L 94.5 F L 94.5 F L Pulse Rate 82 83 80 Respiratory Rate 11 L 12 14 Blood Pressure Pulse Oximetry 98 99 98 Oxygen Delivery Method 05/14/23 11:45 05/14/23 11:50 05/14/23 11:55 Temperature 94.5 F L 94.5 F L 94.3 F L Pulse Rate 85 85 82 Respiratory Rate 14 12 12 Blood Pressure Pulse Oximetry 99 99 99 Oxygen Delivery Method 05/14/23 12:00 05/14/23 12:00 05/14/23 12:02 Temperature 94.3 F L Pulse Rate 80 Respiratory Rate 14 Blood Pressure 84/45 L 80/41 L Pulse Oximetry 100 Oxygen Delivery Method 05/14/23 12:02 05/14/23 12:05 05/14/23 12:10 Temperature 94.3 F L 94.3 F L 94.3 F L Pulse Rate 85 80 81 Respiratory Rate 15 11 L 12 Blood Pressure Pulse Oximetry 99 98 99 Oxygen Delivery Method 05/14/23 12:15 05/14/23 12:20 05/14/23 12:25 Temperature 94.1 F L 94.1 F L 94.1 F L Pulse Rate 80 79 97 H Respiratory Rate 12 11 L 20 Blood Pressure Pulse Oximetry 99 98 82 L Oxygen Delivery Method 05/14/23 12:27 05/14/23 12:30 05/14/23 12:31 Temperature 94.1 F L Pulse Rate 103 H Respiratory Rate 31 H Blood Pressure 92/54 L Pulse Oximetry 81 L Oxygen Delivery Method Nasal Cannula 05/14/23 12:31 05/14/23 12:35 05/14/23 12:40 Temperature 94.1 F L 94.1 F L 94.1 F L Pulse Rate 105 H 104 H 105 H Respiratory Rate 24 30 H 31 H Blood Pressure Pulse Oximetry 85 L 90 L 90 L Oxygen Delivery Method 05/14/23 12:45 05/14/23 12:50 05/14/23 12:55 Temperature 94.1 F L 94.1 F L 94.1 F L Pulse Rate 103 H 107 H 105 H Respiratory Rate 24 25 H 20 Blood Pressure Pulse Oximetry 84 L 90 L 96 Oxygen Delivery Method 05/14/23 13:00 05/14/23 13:00 05/14/23 13:03 Temperature 94.1 F L Pulse Rate 105 H Respiratory Rate 13 Blood Pressure 178/123 H 191/99 H Pulse Oximetry 96 Oxygen Delivery Method 05/14/23 13:03 05/14/23 13:05 05/14/23 13:10 Temperature 94.3 F L 94.3 F L 94.3 F L Pulse Rate 101 H 107 H 101 H Respiratory Rate 18 21 20 Blood Pressure Pulse Oximetry 78 L 89 L 84 L Oxygen Delivery Method 05/14/23 13:15 05/14/23 13:15 05/14/23 13:20 Temperature 94.3 F L 94.3 F L Pulse Rate 107 H 107 H Respiratory Rate 16 17 Blood Pressure 168/89 H Pulse Oximetry 85 L 83 L Oxygen Delivery Method 05/14/23 13:25 05/14/23 13:30 05/14/23 13:31 Temperature 94.3 F L 94.3 F L 94.3 F L Pulse Rate 109 H 109 H 108 H Respiratory Rate 17 30 H 24 Blood Pressure Pulse Oximetry 82 L 88 L 90 L Oxygen Delivery Method 05/14/23 13:31 05/14/23 13:35 05/14/23 13:40 Temperature 94.5 F L 94.5 F L Pulse Rate 100 H 108 H Respiratory Rate 13 14 Blood Pressure 133/87 Pulse Oximetry 89 L 88 L Oxygen Delivery Method Oxygen Delivery Method Nasal Cannula Oxygen Flow Rate 4 Narrative Exam Narrative: Chronically ill appearing Objective Labs 05/14/23 02:03 05/14/23 02:03 Labs: Laboratory Results - last 24 hr 05/13/23 05/13/23 05/13/23 16:40 17:50 17:50 WBC 8.1 RBC 3.97 L Hgb 11.6 L Hct 36.7 MCV 92.5 MCH 29.3 MCHC 31.7 RDW 19.9 H Plt Count 280 Neut % (Auto) 77.4 H Lymph % (Auto) 8.7 L [place] % (Auto) 12.7 Eos % (Auto) 0.2 L Baso % (Auto) 1.0 Neut # (Auto) 6300 Lymph # (Auto) 700 L [place] # (Auto) 1000 H Eos # (Auto) 0 Baso # (Auto) 100 RBC Morphology Anisocytosis PT 20.9 H INR 1.8 H APTT 37 H VBG pH Sodium 135 L Potassium 5.0 Chloride 101 Carbon Dioxide 21 L BUN 32 H Creatinine 0.90 Estimated GFR > 60 BUN/Creatinine Ratio 35.6 H Glucose 114 H Hemoglobin A1c Lactate 3.5 H Calcium 9.3 Total Bilirubin 1.3 AST 74 H ALT 30 Alkaline Phosphatase 225 H Total Creatine Kinase 60 Troponin I 0.211 H* NT-Pro-B Natriuret Pep 2180 H Total Protein 8.3 H Albumin 3.7 Globulin 4.6 H Albumin/Globulin Ratio 0.8 L Triglycerides Cholesterol LDL Cholesterol, Calc HDL Cholesterol Lipase 102 Procalcitonin 0.11 TSH 3.36 Urine Color [place] Urine Appearance Clear Urine pH 5.0 Normal Ur Specific [place] >=1.030 H Urine Protein 2+ H Urine Glucose (UA) Negative Urine Ketones Negative Urine Occult Blood Negative Urine Nitrate Negative Urine Bilirubin Negative Urine Urobilinogen 4.0 H Ur Leukocyte Esterase Negative Urine RBC None seen Urine WBC 0-1/hpf Ur Squamous Epith Cells 5-10 /hpf H Urine Bacteria Moderate (10-30) H Hyaline Casts 1-5/lpf Urine Mucus 2+ H Ur Culture Indicated? Cult not indicated Vol Urine Centrifuged 10ml (spun) Nasal Screen MRSA (PCR) U Opiates 300ng/mL cut Negative Ur Oxycodone Screen Negative Urine Methadone Screen Negative Ur Barbiturates Screen Negative U Tricyclic Antidepress Negative Ur Phencyclidine Scrn Negative Ur Amphetamines Screen Negative U Methamphetamines Scrn Negative Ur MDMA Scrn (Ecstasy) Negative U Benzodiazepines Scrn Negative Urine Cocaine Screen Negative U Marijuana (THC) Screen Negative Urine Specific [place] Normal Ethyl Alcohol < 10 Ur Creatinine Normal 05/13/23 05/13/23 05/13/23 18:31 19:00 23:54 WBC RBC Hgb Hct MCV MCH MCHC RDW Plt Count Neut % (Auto) Lymph % (Auto) [place] % (Auto) Eos % (Auto) Baso % (Auto) Neut # (Auto) Lymph # (Auto) [place] # (Auto) Eos # (Auto) Baso # (Auto) RBC Morphology Anisocytosis PT INR APTT VBG pH 7.32 L Sodium Potassium Chloride Carbon Dioxide BUN Creatinine Estimated GFR BUN/Creatinine Ratio Glucose Hemoglobin A1c Lactate 3.2 H 2.9 H Calcium Total Bilirubin AST ALT Alkaline Phosphatase Total Creatine Kinase Troponin I 0.251 H* 0.430 H* NT-Pro-B Natriuret Pep Total Protein Albumin Globulin Albumin/Globulin Ratio Triglycerides Cholesterol LDL Cholesterol, Calc HDL Cholesterol Lipase Procalcitonin TSH Urine Color Urine Appearance Urine pH Ur Specific [place] Urine Protein Urine Glucose (UA) Urine Ketones Urine Occult Blood Urine Nitrate Urine Bilirubin Urine Urobilinogen Ur Leukocyte Esterase Urine RBC Urine WBC Ur Squamous Epith Cells Urine Bacteria Hyaline Casts Urine Mucus Ur Culture Indicated? Vol Urine Centrifuged Nasal Screen MRSA (PCR) U Opiates 300ng/mL cut Ur Oxycodone Screen Urine Methadone Screen Ur Barbiturates Screen U Tricyclic Antidepress Ur Phencyclidine Scrn Ur Amphetamines Screen U Methamphetamines Scrn Ur MDMA Scrn (Ecstasy) U Benzodiazepines Scrn Urine Cocaine Screen U Marijuana (THC) Screen Urine Specific [place] Ethyl Alcohol Ur Creatinine 05/14/23 05/14/23 05/14/23 00:12 02:03 06:10 WBC 17.8 H D RBC 3.61 L Hgb 10.4 L Hct 33.4 L MCV 92.5 MCH 28.8 MCHC 31.2 RDW 20.2 H Plt Count 244 Neut % (Auto) 88.4 H Lymph % (Auto) 2.0 L [place] % (Auto) 8.5 Eos % (Auto) 0.4 L Baso % (Auto) 0.7 Neut # (Auto) 35290 H Lymph # (Auto) 400 L [place] # (Auto) 1500 H Eos # (Auto) 100 Baso # (Auto) 100 RBC Morphology See below Anisocytosis 1+ H PT INR APTT VBG pH Sodium 135 L Potassium 4.6 Chloride 104 Carbon Dioxide 19 L BUN 32 H Creatinine 0.95 Estimated GFR > 60 BUN/Creatinine Ratio 33.7 H Glucose 71 L Hemoglobin A1c 6.1 H Lactate 3.2 H 2.4 H Calcium 8.7 Total Bilirubin AST ALT Alkaline Phosphatase Total Creatine Kinase Troponin I 0.695 H* NT-Pro-B Natriuret Pep 3430 H Total Protein Albumin Globulin Albumin/Globulin Ratio Triglycerides 69 Cholesterol 68 L LDL Cholesterol, Calc 39 HDL Cholesterol 15 L Lipase Procalcitonin TSH Urine Color Urine Appearance Urine pH Ur Specific [place] Urine Protein Urine Glucose (UA) Urine Ketones Urine Occult Blood Urine Nitrate Urine Bilirubin Urine Urobilinogen Ur Leukocyte Esterase Urine RBC Urine WBC Ur Squamous Epith Cells Urine Bacteria Hyaline Casts Urine Mucus Ur Culture Indicated? Vol Urine Centrifuged Nasal Screen MRSA (PCR) Not detected U Opiates 300ng/mL cut Ur Oxycodone Screen Urine Methadone Screen Ur Barbiturates Screen U Tricyclic Antidepress Ur Phencyclidine Scrn Ur Amphetamines Screen U Methamphetamines Scrn Ur MDMA Scrn (Ecstasy) U Benzodiazepines Scrn Urine Cocaine Screen U Marijuana (THC) Screen Urine Specific [place] Ethyl Alcohol Ur Creatinine 05/14/23 08:17 WBC RBC Hgb Hct MCV MCH MCHC RDW Plt Count Neut % (Auto) Lymph % (Auto) [place] % (Auto) Eos % (Auto) Baso % (Auto) Neut # (Auto) Lymph # (Auto) [place] # (Auto) Eos # (Auto) Baso # (Auto) RBC Morphology Anisocytosis PT INR APTT VBG pH Sodium Potassium Chloride Carbon Dioxide BUN Creatinine Estimated GFR BUN/Creatinine Ratio Glucose Hemoglobin A1c Lactate 2.6 H Calcium Total Bilirubin AST ALT Alkaline Phosphatase Total Creatine Kinase Troponin I NT-Pro-B Natriuret Pep Total Protein Albumin Globulin Albumin/Globulin Ratio Triglycerides Cholesterol LDL Cholesterol, Calc HDL Cholesterol Lipase Procalcitonin TSH Urine Color Urine Appearance Urine pH Ur Specific [place] Urine Protein Urine Glucose (UA) Urine Ketones Urine Occult Blood Urine Nitrate Urine Bilirubin Urine Urobilinogen Ur Leukocyte Esterase Urine RBC Urine WBC Ur Squamous Epith Cells Urine Bacteria Hyaline Casts Urine Mucus Ur Culture Indicated? Vol Urine Centrifuged Nasal Screen MRSA (PCR) U Opiates 300ng/mL cut Ur Oxycodone Screen Urine Methadone Screen Ur Barbiturates Screen U Tricyclic Antidepress Ur Phencyclidine Scrn Ur Amphetamines Screen U Methamphetamines Scrn Ur MDMA Scrn (Ecstasy) U Benzodiazepines Scrn Urine Cocaine Screen U Marijuana (THC) Screen Urine Specific [place] Ethyl Alcohol Ur Creatinine Assessment & Plan Assessment & Plan narrative: NEURO: # Acute encephalopathy -- Secondary to sepsis and metabolic derangement -- Check stat ABG -- Avoid sedatives -- Daily SAT RESP: # Acute hypoxemia respiratory failure -- Secondary to pulmonary edema w/ superimposed PNA -- On vanc/cefepime -- Need aggressive diuresis to seek net negative fluid balance -- Check ABG -- May need BiPAP support to seek afterload and preload reduction -- HOB elevation -- Aspiration precaution -- Goal SpO2 > 90% CVS: # Shock -- Secondary to RV failure -- Need aggressive diuresis to seek preload reduction -- If failed to make urine then will need inotrope support -- On levophed -- On abx as below -- MAP goal > 65 # Lactic acidosis -- Secondary to RV failure -- Cont diuresis as above -- Trend lactic acid ID: # Sepsis -- Follow up cx -- On vanc/cefepime -- Wound care consultation for LE wounds ENDO: -- Goal BS < 180 D/w bedside RN and Dr. Almeida. Time Spent With Patient Time with patient: 30 to 49 minutes with 50% spent counseling/coordinating care
[2023-05-14] MEDS: BUMETANIDE 1 MG/4 ML VIAL 2 MG IV (14:48)
[2023-05-14 15:35] LABS: Troponin I 0.771 ng/mL (0.01-0.034)
[2023-05-14 15:44] LABS: PCO2 ABG 43.1 mmHg (35-45); PO2 ABG 91 mmHg (80-100); pH ABG 7.29 (7.35-7.45)
[2023-05-14 15:45] LABS: Blood Gas Collection Site Right Radial; Fractionated Inspired Oxygen 40; HCO3 ABG 21 mmol/L (23-27); Oxygen Saturation ABG 96 % (95-100); TCO2 ABG 22 mmol/L (23-27)
[2023-05-14 15:46] LABS: Allen Test for ABG Passed? Yes, Passed
--- NOTE | 2023-05-14 15:57 | PC.NURSE ---
Day shift note: Pt oriented to self, . Able to follow simple directions, and answer most questions, core temp 95.0, pt c/o being HOT refusing to wear gown, skin is cool to touch, only wants sheet on for cover. Pt remains in Afib RVR 110-115, BP 115/74 on .04 . Most recent trop. 0.771 Provider notified, no new orders. Increased confusion, pt falls asleep, but c/o pain 6/10 in bilateral legs. Son has arrived and is at bedside, no further needs at this time
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
--- NOTE | 2023-05-14 20:37 | PM.ICURNDS ---
- :: This patient was seen via real time interactive two-way audiovisual telecommunication. pt remains on vasopressors with labile response. wound care pending and she is on abx. Suspect severe pulm htn so should aim for gentle diuresis
[2023-05-14] MEDS: SENNOSIDES 8.6 MG TABLET 17.2 MG PO (20:51)
[2023-05-14] MEDS: APIXABAN 5 MG TABLET PO (20:51)
[2023-05-15] VITALS (48 sets, daily range): BP systolic 82–159; BP diastolic 50–71; PULSE 98–134; RESP 13–43; TEMP 35.5–36.2; O2SAT 93–100
[2023-05-15] MEDS: NOREPINEPHRINE BITARTRATE/D5W 4 MG/250 ML PLAST..BAG 13.68 MG IV (01:56)
[2023-05-15] MEDS: VANCOMYCIN TROUGH 1 REQUEST MISC (05:20)
[2023-05-15 05:34] LABS: Add Manual Diff / Slide Review NO; Basophils Absolute Auto 100 /uL (0-100); Basophils Percent Auto 0.8 % (0-2); Eosinophils Absolute Auto 100 /uL (0-450); Eosinophils Percent Auto 0.7 % (2-4); Hematocrit 33.2 % (36-46); Hemoglobin 10.4 g/dL (12.0-16.0); Lymphocytes Absolute Auto 600 /uL (1100-4500); Lymphocytes Percent Auto 5.7 % (25-40); Mean Corpuscular HGB Conc 31.5 % (30-36); Mean Corpuscular Hemoglobin 28.8 PG (26-34); Mean Corpuscular Volume 91.5 fL (80-100); Monocytes Absolute Auto 1000 /uL (0-900); Monocytes Percent Auto 8.8 % (3-14); Neutrophils Absolute Auto 9200 /uL (1500-7000); Platelet Count 260 X10^3/uL (150-400); Red Blood Cell Count 3.62 X10^6/uL (4.0-5.2); Red Cell Distribution Width 19.6 % (11.6-14.8); White Blood Cell Count 10.9 X10^3/uL (4.5-11.0)
[2023-05-15 05:59] LABS: Alanine Aminotransferase 31 IU/L (<35); Albumin 3.1 g/dL (3.5-5.0); Albumin Globulin Ratio 0.8 (1.0-2.8); Alkaline Phosphatase 197 U/L (38-126); Aspartate Aminotransferase 70 IU/L (14-36); BUN Creatinine Ratio 31.3 (6-22); Bilirubin Total 1.2 mg/dL (0.2-1.3); Blood Urea Nitrogen 31 mg/dL (7-17); Calcium 8.5 mg/dL (8.4-10.2); Carbon Dioxide 23 mmol/L (22-32); Chloride 103 mmol/L (98-107); Estimated Glomerular Filt Rate 58 mL/min (>60); Globulin 4.1 g/dL (1.7-4.1); Glucose 139 mg/dL (80-110); HEMOLYSIS < 15 (0-50); Magnesium 1.5 mg/dL (1.6-2.3); Potassium 4.1 mmol/L (3.4-5.1); Sodium 136 mmol/L (137-145); Total Protein 7.2 g/dL (6.3-8.2)
[2023-05-15 06:12] LABS: Vancomycin Trough 20.8 ug/mL (10-20)
--- NOTE | 2023-05-15 06:34 | PC.NURSE ---
Vancomycin trough 20.8, pharmacy updated, 0630H Vancomycin dose not given per pharmacy.
--- NOTE | 2023-05-15 07:40 | PM.PN.1 ---
Subjective Subjective Interval history: 77 F with pmh of HTN, prior NSTEMI (but clean coronaries on [facility] 10/2022), afib, pulm HTN, CHFpEF, ALMA who presented with 2-3 days of worsening leg pain. She reports she is slow and confused today. Her BP dropped this morning, but did not respond to fluid boluses. She was started on levophed for septic shock. Developed worsening dyspnea, hypoxia when flat for PICC, improved with sitting up but was ordered for furosemide x1 dose with slight congestive appearance on CXR and after multiple fluid boluses. Today: She is feeling better, she is less short of breath. She is minimal cough. She is still on a very small amount of norepinephrine. Her son is at the bedside. She denies any chest pain or chest pressure. Exam Vital Signs (past 8 hours): - 05/15/23 00:00 05/15/23 00:00 05/15/23 00:01 Temperature 95.9 F L Pulse Rate 116 H Respiratory Rate 14 Blood Pressure 159/65 H Pulse Oximetry 99 Oxygen Delivery Method Oximask Oxygen Flow Rate 4 05/15/23 00:01 05/15/23 01:00 05/15/23 01:01 Temperature 95.9 F L 96.1 F L Pulse Rate 122 H 109 H Respiratory Rate 17 13 Blood Pressure 91/54 L Pulse Oximetry 98 96 Oxygen Delivery Method Oxygen Flow Rate 05/15/23 01:01 05/15/23 01:40 05/15/23 01:40 Temperature 96.1 F L 96.1 F L Pulse Rate 106 H 111 H Respiratory Rate 13 13 Blood Pressure 117/61 Pulse Oximetry 97 99 Oxygen Delivery Method Oxygen Flow Rate 4 05/15/23 02:00 05/15/23 02:00 05/15/23 03:00 Temperature 96.1 F L Pulse Rate 109 H Respiratory Rate 20 Blood Pressure 131/56 L 108/52 L Pulse Oximetry 99 Oxygen Delivery Method Oxygen Flow Rate 4 05/15/23 03:00 05/15/23 04:00 05/15/23 04:00 Temperature 96.1 F L 96.1 F L Pulse Rate 104 H 105 H Respiratory Rate 13 13 Blood Pressure Pulse Oximetry 99 100 Oxygen Delivery Method Oximask Oxygen Flow Rate 4 4 05/15/23 04:00 05/15/23 05:00 05/15/23 05:01 Temperature 96.1 F L Pulse Rate 120 H Respiratory Rate 23 Blood Pressure 113/53 L 105/65 Pulse Oximetry 100 Oxygen Delivery Method Oxygen Flow Rate 05/15/23 05:01 05/15/23 06:00 05/15/23 06:01 Temperature 96.1 F L 96.3 F L Pulse Rate 106 H 129 H Respiratory Rate 21 14 Blood Pressure 136/60 Pulse Oximetry 100 99 Oxygen Delivery Method Oxygen Flow Rate 4 05/15/23 06:01 Temperature 96.3 F L Pulse Rate 125 H Respiratory Rate 16 Blood Pressure Pulse Oximetry 99 Oxygen Delivery Method Oxygen Flow Rate 4 Oxygen Delivery Method Oximask Oxygen Flow Rate 4 Narrative Exam Narrative: NAD, on oxygen 4 L OxyMask. Lungs are clear, some scattered wheezing. Heart is regular, tachycardic, no murmur. Abdomen is soft, non tender. Extremities are free of edema. PICC in place. Objective Labs 05/15/23 05:20 05/15/23 05:20 Labs: Laboratory Results - last 24 hr 05/14/23 05/14/23 05/14/23 08:17 14:59 15:30 WBC RBC Hgb Hct MCV MCH MCHC RDW Plt Count Neut % (Auto) Lymph % (Auto) [place] % (Auto) Eos % (Auto) Baso % (Auto) Neut # (Auto) Lymph # (Auto) [place] # (Auto) Eos # (Auto) Baso # (Auto) ABG Sample Site Right radial ABG pH 7.29 L* ABG pCO2 43.1 ABG pO2 91 ABG HCO3 21 L ABG Total CO2 22 L ABG O2 Saturation 96 ABG Base Excess -6.0 L FiO2 40 Sodium Potassium Chloride Carbon Dioxide BUN Creatinine Estimated GFR BUN/Creatinine Ratio Glucose Lactate 2.6 H Calcium Magnesium Total Bilirubin AST ALT Alkaline Phosphatase Troponin I 0.771 H* Total Protein Albumin Globulin Albumin/Globulin Ratio Vancomycin Trough 05/15/23 05:20 WBC 10.9 RBC 3.62 L Hgb 10.4 L Hct 33.2 L MCV 91.5 MCH 28.8 MCHC 31.5 RDW 19.6 H Plt Count 260 Neut % (Auto) 84.0 H Lymph % (Auto) 5.7 L [place] % (Auto) 8.8 Eos % (Auto) 0.7 L Baso % (Auto) 0.8 Neut # (Auto) 9200 H Lymph # (Auto) 600 L [place] # (Auto) 1000 H Eos # (Auto) 100 Baso # (Auto) 100 ABG Sample Site ABG pH ABG pCO2 ABG pO2 ABG HCO3 ABG Total CO2 ABG O2 Saturation ABG Base Excess FiO2 Sodium 136 L Potassium 4.1 Chloride 103 Carbon Dioxide 23 BUN 31 H Creatinine 0.99 Estimated GFR 58 L BUN/Creatinine Ratio 31.3 H Glucose 139 H Lactate Calcium 8.5 Magnesium 1.5 L Total Bilirubin 1.2 AST 70 H ALT 31 Alkaline Phosphatase 197 H Troponin I Total Protein 7.2 Albumin 3.1 L Globulin 4.1 Albumin/Globulin Ratio 0.8 L Vancomycin Trough 20.8 H* PFSH Social History household members: family Smoking Status: Never smoker Assessment & Plan Assessment & Plan narrative: 1. Septic shock with acute metabolic encephalopathy, acute respiratory failure with hypoxia, and elevated bilirubin. Active and improving. - continue cefepime and vanco per pharmacy. If cultures remain negative can likely discontinue vanco with negative MRSA nasal swab in the next few days. - have stopped IV fluids due to pulmonary congestion she received 3.5 L approx of fluid boluses, wean from levophed as tolerated goal MAP >65. - source possible cystitis but more likely b/l LE cellulitis. No rapid progression currently or crepitus to suggest necrotizing infection - follow up blood cultures, urine cultures. 2. Demand ischemia, present on admission and improving. - echo with normal wall motion and EF around 55%. - trend troponin until downtrending, currently 0.695. Had C on 10/2022 which showed clean coronaries per outside records received. - from her last hospitalization it appears as if she is supposed to be on xarelto, will start eliquis. 3. Acute on chronic diastolic heart failure, improving. - diurese prn for now with shock. Given 40 mg IV lasix x1 today. - is also supposed to be on furosemide and aldactone from outside medication records. 4. Chronic atrial fibrillation, present on admission and active. - start eliquis as noted above - holding home metoprolol for now 5. HTN, not active. - holding home metoprolol and diuretics in setting of possible septic shock. 6. Morbid obesity, present on admission and active. - The patient is at much higher risk for medical and surgical complications because of their obesity. This increases the difficulty and complexity of medical and surgical interventions and increases the chances of poor outcomes such as morbidity and mortality. Code: DNR, surrogate is patient's son DVT: start eliquis as noted above Dispo: remains ICU Time Spent With Patient Time with patient: 30 to 49 minutes with 50% spent counseling/coordinating care Quality VTE Deep Vein Thrombosis/Pulmonary Embolism Present on Admission: No
[2023-05-15] MEDS: GABAPENTIN 300 MG CAPSULE PO ×4 (08:08→20:51)
[2023-05-15] MEDS: APIXABAN 5 MG TABLET PO ×2 (08:08→20:51)
[2023-05-15] MEDS: ACETAMINOPHEN 325 MG TABLET 650 MG PO (08:11)
[2023-05-15] MEDS: HYDROCODONE/ACET 5/325 TABLET 1 TAB PO ×2 (08:11→18:37)
[2023-05-15] MEDS: MAGNESIUM CHLORIDE 64 MG TABLET 128 MG PO (10:19)
[2023-05-15] MEDS: CEFEPIME 1 GM in SODIUM CHLORIDE 0.9% 100 ML IV ×2 (10:20→22:22)
--- NOTE | 2023-05-15 12:29 | PM.PN.EICU ---
Subjective Subjective IF CAMERA ACTIVATED, patient seen via real-time interactive audiovisual communication: Camera activated Consent obtained for tele-manager financial services care: Yes Patient Location: ICU Provider location (State): [place] Other participants/roles: RN Interval history: pt remains on levophed at a low dose. she is diuresing well though Current Medications Current Medications Medications: Home Medications gabapentin 300 mg capsule 300 mg PO QID 05/13/23 [History Confirmed 05/13/23] metoprolol tartrate 25 mg tablet 75 mg PO BID 05/13/23 [History Confirmed 05/13/23] Visit Medications (administered) Generic Name Dose Route Start Last Admin Trade Name Freq PRN Reason Stop Dose Admin Acetaminophen 650 mg 05/13/23 22:32 05/15/23 08:11 Acetaminophen 325 Mg Tablet PO 650 mg Q6H PRN Administration Fever/Mild Pain (1-3) Hydrocodone Bitart/Acetaminophen 1 tab 05/13/23 22:32 05/15/23 08:11 Hydrocodone/Acet 5/325 Tablet PO 1 tab Q4H PRN Administration Pain, Moderate (4-6) Apixaban 5 mg 05/14/23 21:00 05/15/23 08:08 Apixaban 5 Mg Tablet PO 5 mg BID VERO Administration Gabapentin 300 mg 05/14/23 09:00 05/15/23 08:08 Gabapentin 300 Mg Capsule PO 300 mg QID VERO Administration Cefepime HCl 1 gm/ Sodium 100 mls @ 200 mls/hr 05/14/23 09:45 05/15/23 10:20 Chloride IV 200 mls/hr Q12H VERO Administration NOREPINEPHRINE BITARTRATE/D5W 4 mg in 250 mls @ 45.6 mls/hr 05/14/23 12:02 05/15/23 01:56 Levophed IV 0.03 mcg/kg/min TITRATE VERO 13.68 mls/hr Administration Protocol 0.1 MCG/KG/MIN Oxycodone HCl 10 mg 05/14/23 09:01 05/14/23 09:10 Oxycodone Ir 10 Mg Tablet PO 10 mg Q3HR PRN Administration Pain, Severe (7-10) Sennosides 17.2 mg 05/14/23 21:00 05/14/23 20:51 Sennosides 8.6 Mg Tablet PO 17.2 mg BEDTIME VERO Administration Objective Labs 05/15/23 05:20 05/15/23 05:20 Labs: Laboratory Results - last 24 hr 05/14/23 05/14/23 05/15/23 14:59 15:30 05:20 WBC 10.9 RBC 3.62 L Hgb 10.4 L Hct 33.2 L MCV 91.5 MCH 28.8 MCHC 31.5 RDW 19.6 H Plt Count 260 Neut % (Auto) 84.0 H Lymph % (Auto) 5.7 L [place] % (Auto) 8.8 Eos % (Auto) 0.7 L Baso % (Auto) 0.8 Neut # (Auto) 9200 H Lymph # (Auto) 600 L [place] # (Auto) 1000 H Eos # (Auto) 100 Baso # (Auto) 100 ABG Sample Site Right radial ABG pH 7.29 L* ABG pCO2 43.1 ABG pO2 91 ABG HCO3 21 L ABG Total CO2 22 L ABG O2 Saturation 96 ABG Base Excess -6.0 L FiO2 40 Sodium 136 L Potassium 4.1 Chloride 103 Carbon Dioxide 23 BUN 31 H Creatinine 0.99 Estimated GFR 58 L BUN/Creatinine Ratio 31.3 H Glucose 139 H Calcium 8.5 Magnesium 1.5 L Total Bilirubin 1.2 AST 70 H ALT 31 Alkaline Phosphatase 197 H Troponin I 0.771 H* Total Protein 7.2 Albumin 3.1 L Globulin 4.1 Albumin/Globulin Ratio 0.8 L Vancomycin Trough 20.8 H* Exam Vital Signs (past 8 hours): - 05/15/23 05:00 05/15/23 05:01 05/15/23 05:01 Temperature 96.1 F L 96.1 F L Pulse Rate 120 H 106 H Respiratory Rate 23 21 Blood Pressure 105/65 Pulse Oximetry 100 100 Oxygen Delivery Method Oxygen Flow Rate 4 05/15/23 06:00 05/15/23 06:01 05/15/23 06:01 Temperature 96.3 F L 96.3 F L Pulse Rate 129 H 125 H Respiratory Rate 14 16 Blood Pressure 136/60 Pulse Oximetry 99 99 Oxygen Delivery Method Oxygen Flow Rate 4 05/15/23 07:00 05/15/23 07:01 05/15/23 07:01 Temperature 96.4 F L 96.4 F L Pulse Rate 109 H 115 H Respiratory Rate 18 14 Blood Pressure 125/54 L Pulse Oximetry 98 99 Oxygen Delivery Method Oxygen Flow Rate 05/15/23 08:00 05/15/23 08:00 05/15/23 08:00 Temperature 96.4 F L Pulse Rate 118 H Respiratory Rate 14 Blood Pressure 118/57 L Pulse Oximetry 96 Oxygen Delivery Method Nasal Cannula Oximask Oxygen Flow Rate 05/15/23 08:48 05/15/23 09:00 05/15/23 09:01 Temperature 96.6 F L 96.6 F L Pulse Rate 131 H 134 H Respiratory Rate 26 H 31 H Blood Pressure Pulse Oximetry 98 98 98 Oxygen Delivery Method Oximask Oxygen Flow Rate 2 05/15/23 09:01 05/15/23 10:00 05/15/23 10:00 Temperature 96.6 F L Pulse Rate 120 H Respiratory Rate 13 Blood Pressure 103/59 L 111/58 L Pulse Oximetry 99 Oxygen Delivery Method Oxygen Flow Rate 05/15/23 11:00 05/15/23 11:01 05/15/23 11:01 Temperature 96.6 F L 96.6 F L Pulse Rate 129 H 129 H Respiratory Rate 23 26 H Blood Pressure 82/56 L Pulse Oximetry 98 98 Oxygen Delivery Method Oxygen Flow Rate 05/15/23 11:07 05/15/23 11:07 Temperature 96.6 F L Pulse Rate 129 H Respiratory Rate 43 H Blood Pressure 92/55 L Pulse Oximetry 97 Oxygen Delivery Method Oxygen Flow Rate Oxygen Delivery Method Oximask Oxygen Flow Rate 2 Narrative Exam Narrative: ill appearing Resp Other: symmetric chest rise Quality TeleICU VTE Deep Vein Thrombosis/Pulmonary Embolism Present on Admission: No Assessment & Plan Assessment & Plan narrative: # Acute encephalopathy # Acute hypoxemia respiratory failure # Shock # Lactic acidosis # Sepsis supplemental o2 bipap as needed, btu woudl take caution wiht PPV given her severe ph map goal >65 on levophed, depending on her needs today would consider switcvhing to vasopressin given PH ( it can offer some imrpovement in the pulmonary vasculature) adat trend bmp monitor UO on empirc abx wound care for LE ulcers/wounds f/u cx dvt ppx gola bg < 180 trend LA ttoal CCT 35 min Time Spent With Patient Time with patient: 30 to 49 minutes with 50% spent counseling/coordinating care
--- NOTE | 2023-05-15 13:48 | CM.DPC ---
DCP Cont. Reviewed EMR and team rounds for status updates. Met at bedside with pt and her son to provide information re: Medicaid Long-Term Care in an Assisted Living Facility and the difference between Medicare [facility]. Plan is to pursue placement for rehab at [facility], if they accept. Longer term plan is to get the Medicaid application turned in tomorrow in order to get the process started to determine if pt meets eligibility for Medicaid LTC, which they prefer to be in [place], where all of pt's support people live. This JUV[employer]RECTIONS OFFICER will assist pt's son tomorrow am to complete those documents. No further needs indicated for assistance today.
[2023-05-15] MEDS: VASOPRESSIN 40 UNIT in SODIUM CHLORIDE 0.9% 100 ML 4.5 UNIT IV (15:05)
--- NOTE | 2023-05-15 17:36 | DIET.CONS ---
Dietary Consultation Note Admission Date: 05/13/2023 22:05 Assessment: 77F admitted with worsening leg pain and swelling. Found to have bilateral LE cellulitis, sepsis, afib, and elevated tropes. RD consulted for wound healing nutrition. h/o chronic LE cellulitis. Diet recall indicates 2-3 meals per day and snacks. Limited veggies and fruit during day. Enjoys fruit. Labs: hgA1c 6.1%, GFR 58 Cr: 0.99 Ht: 162.56 cm Wt: 116.3 kg BMI: 38.4 Last BM: 05/12/23 (05/13/23 22:31) MNA: 11 Lux Score: 15 Diet: 05/14/23 Breakfast Heart Healthy Diet Diet Modifications: Nutrition Percent Meal Consumed 100% 05/15/23 09:35 Percent Meal Consumed refused dinner had late lunch 05/14/23 18:05 Percent Meal Consumed 100% 05/14/23 17:46 Percent Meal Consumed jello 05/13/23 21:43 Labs: RBC 3.62 X10^6/uL (4.0-5.2) L 05/15/23 05:20 Hgb 10.4 g/dL (12.0-16.0) L 05/15/23 05:20 Hct 33.2 % (36-46) L 05/15/23 05:20 Creatinine 0.99 mg/dL (0.52-1.04) 05/15/23 05:20 Hemoglobin A1c 6.1 % (4.0-6.0) H 05/14/23 06:10 Lactate 2.6 mmol/L (0.7-2.1) H 05/14/23 08:17 NT-Pro-B Natriuret Pep 3430 pg/mL (<450) H 05/14/23 06:10 Nutrition Diagnosis: Increased nutrient needs r/t increased vit c and amino acid needs aeb chronic bilateral LE wounds Interventions: Anastacio BID Fruit cup with meals Monitoring/Evaluations: RD f/u 5-7 days Electronically Signed by: Monika Greco 05/15/23 17:36 Clinical Dietitian [address] [address]
[2023-05-15] MEDS: VANCOMYCIN 1,500 MG/300 ML PIGGYBACK 200 MG IV (20:49)
--- NOTE | 2023-05-15 20:49 | PM.ICURNDS ---
- :: This patient was seen via real time interactive two-way audiovisual telecommunication. Note: Diuresed over 3.5 liters and MAP remains above 65 on fixed dose vasopressin. Will stop vasopressin and if MAP is less than 65 then will restart per protocol. D/w bedside RN.
[2023-05-15] MEDS: SENNOSIDES 8.6 MG TABLET 17.2 MG PO (20:51)
[2023-05-16] VITALS (32 sets, daily range): BP systolic 95–159; BP diastolic 54–80; PULSE 80–141; RESP 8–32; TEMP 35.1–36.1; O2SAT 92–99
[2023-05-16] MEDS: HYDROCODONE/ACET 5/325 TABLET 1 TAB PO ×3 (00:36→18:29)
[2023-05-16 05:32] LABS: Add Manual Diff / Slide Review NO; Basophils Absolute Auto 100 /uL (0-100); Basophils Percent Auto 0.8 % (0-2); Eosinophils Absolute Auto 100 /uL (0-450); Eosinophils Percent Auto 1.8 % (2-4); Hematocrit 30.1 % (36-46); Hemoglobin 9.7 g/dL (12.0-16.0); Lymphocytes Absolute Auto 700 /uL (1100-4500); Lymphocytes Percent Auto 8.1 % (25-40); Mean Corpuscular HGB Conc 32.1 % (30-36); Mean Corpuscular Hemoglobin 29.3 PG (26-34); Mean Corpuscular Volume 91.3 fL (80-100); Monocytes Absolute Auto 1100 /uL (0-900); Monocytes Percent Auto 13.7 % (3-14); Neutrophils Absolute Auto 6300 /uL (1500-7000); Neutrophils Percent Auto 75.6 % (50-75); Platelet Count 193 X10^3/uL (150-400); Red Cell Distribution Width 19.8 % (11.6-14.8); White Blood Cell Count 8.3 X10^3/uL (4.5-11.0)
[2023-05-16 05:41] LABS: Alanine Aminotransferase 25 IU/L (<35); Albumin 2.9 g/dL (3.5-5.0); Albumin Globulin Ratio 0.8 (1.0-2.8); Alkaline Phosphatase 192 U/L (38-126); Aspartate Aminotransferase 45 IU/L (14-36); BUN Creatinine Ratio 37.8 (6-22); Bilirubin Total 0.9 mg/dL (0.2-1.3); Blood Urea Nitrogen 28 mg/dL (7-17); Calcium 8.3 mg/dL (8.4-10.2); Carbon Dioxide 27 mmol/L (22-32); Chloride 103 mmol/L (98-107); Estimated Glomerular Filt Rate > 60 mL/min (>60); Globulin 3.8 g/dL (1.7-4.1); Glucose 131 mg/dL (80-110); HEMOLYSIS < 15 (0-50); Magnesium 1.5 mg/dL (1.6-2.3); Potassium 4.5 mmol/L (3.4-5.1); Sodium 137 mmol/L (137-145); Total Protein 6.7 g/dL (6.3-8.2)
--- NOTE | 2023-05-16 08:19 | PM.PN.1 ---
Subjective Subjective Interval history: She feels better. She was switched to vasopressin yesterday and does have a drop in blood pressure when this is trying to be weaned off. She has a slightly lower urine output. She notes that she feels better and her breathing is much less short. She is down to 1-2 L of oxygen. She denies any chest pain, or palpitations. Her rate control is between 100 and 115 per, atrial fibrillation. Exam Vital Signs (past 8 hours): - 05/16/23 01:00 05/16/23 01:00 05/16/23 02:00 Temperature 96.6 F L Pulse Rate 101 H Respiratory Rate 18 Blood Pressure 119/57 L 107/59 L Pulse Oximetry 98 Oxygen Delivery Method 05/16/23 02:00 05/16/23 03:00 05/16/23 03:00 Temperature 96.6 F L 96.4 F L Pulse Rate 91 H 84 Respiratory Rate 15 10 L Blood Pressure 108/55 L Pulse Oximetry 97 98 Oxygen Delivery Method 05/16/23 04:00 05/16/23 04:00 05/16/23 04:00 Temperature 96.3 F L Pulse Rate 93 H Respiratory Rate 12 Blood Pressure 108/57 L Pulse Oximetry 97 Oxygen Delivery Method Nasal Cannula 05/16/23 05:00 05/16/23 05:00 05/16/23 06:00 Temperature 96.1 F L Pulse Rate 81 Respiratory Rate 15 Blood Pressure 97/54 L 102/58 L Pulse Oximetry 97 Oxygen Delivery Method 05/16/23 06:00 05/16/23 07:00 05/16/23 07:00 Temperature 96.1 F L 96.1 F L Pulse Rate 90 85 Respiratory Rate 12 14 Blood Pressure 111/77 Pulse Oximetry 99 99 Oxygen Delivery Method Oxygen Delivery Method Nasal Cannula Oxygen Flow Rate 2 Narrative Exam Narrative: NAD, fluent speech, oxygen 1-2 L. Pleasant, alert and oriented x3 Neck is supple Lungs are notable for being mostly clear with no wheezing. Heart is irregular and slightly tachycardic. No murmur. Abdomen is distended and nontender. Extremities notable for 1+ edema, less redness of both legs today. She is excoriation. Objective Labs 05/16/23 05:20 05/16/23 05:20 Labs: Laboratory Results - last 24 hr 05/16/23 05:20 WBC 8.3 RBC 3.30 L Hgb 9.7 L Hct 30.1 L MCV 91.3 MCH 29.3 MCHC 32.1 RDW 19.8 H Plt Count 193 Neut % (Auto) 75.6 H Lymph % (Auto) 8.1 L [place] % (Auto) 13.7 Eos % (Auto) 1.8 L Baso % (Auto) 0.8 Neut # (Auto) 6300 Lymph # (Auto) 700 L [place] # (Auto) 1100 H Eos # (Auto) 100 Baso # (Auto) 100 Sodium 137 Potassium 4.5 Chloride 103 Carbon Dioxide 27 BUN 28 H Creatinine 0.74 Estimated GFR > 60 BUN/Creatinine Ratio 37.8 H Glucose 131 H Calcium 8.3 L Magnesium 1.5 L Total Bilirubin 0.9 AST 45 H ALT 25 Alkaline Phosphatase 192 H Total Protein 6.7 Albumin 2.9 L Globulin 3.8 Albumin/Globulin Ratio 0.8 L PFSH Social History household members: family Smoking Status: Never smoker Assessment & Plan Assessment & Plan narrative: 1. Septic shock with acute metabolic encephalopathy, acute respiratory failure with hypoxia, and elevated bilirubin. Active and improving. - continue cefepime and vanco per pharmacy. If cultures remain negative can likely discontinue vanco with negative MRSA nasal swab in the next few days. - source possible cystitis but more likely b/l LE cellulitis. Neg blood culture. - Discuss with eICU and bolus saline 500 once and re attempt vasopressin wean. 2. Demand ischemia, present on admission and improving. - echo with normal wall motion and EF around 55%. - trend troponin until downtrending, currently 0.695. Had [facility] on 10/2022 which showed clean coronaries per outside records received. - from her last hospitalization it appears as if she is supposed to be on xarelto, started eliquis. 3. Acute on chronic diastolic heart failure, improving. - diurese prn for now with shock. Hold lasix due to low BP. - is also supposed to be on furosemide and aldactone from outside medication records. 4. Chronic atrial fibrillation with RVR, present on admission and active. - start eliquis as noted above - holding home metoprolol for now 5. HTN, not active. - holding home metoprolol and diuretics in setting of possible septic shock. 6. Morbid obesity, present on admission and active. - The patient is at much higher risk for medical and surgical complications because of their obesity. This increases the difficulty and complexity of medical and surgical interventions and increases the chances of poor outcomes such as morbidity and mortality. Code: DNR, surrogate is patient's son DVT: start eliquis as noted above Time Spent With Patient Time with patient: 30 to 49 minutes with 50% spent counseling/coordinating care Quality VTE Deep Vein Thrombosis/Pulmonary Embolism Present on Admission: No
[2023-05-16] MEDS: NYSTATIN POWDER 15GM 1 APPLIC TOP ×2 (08:27→20:59)
[2023-05-16] MEDS: APIXABAN 5 MG TABLET PO ×2 (08:27→20:58)
[2023-05-16] MEDS: GABAPENTIN 300 MG CAPSULE PO ×4 (08:27→20:58)
[2023-05-16] MEDS: SODIUM CHLORIDE 0.9% 500 ML IV (09:45)
[2023-05-16] MEDS: CEFEPIME 1 GM in SODIUM CHLORIDE 0.9% 100 ML IV ×2 (09:49→22:34)
[2023-05-16] MEDS: MAGNESIUM CHLORIDE 64 MG TABLET 128 MG PO (09:55)
[2023-05-16] MEDS: VASOPRESSIN 40 UNIT in SODIUM CHLORIDE 0.9% 100 ML 4.5 UNIT IV (10:03)
--- NOTE | 2023-05-16 12:31 | PM.PN.EICU ---
Subjective Subjective IF CAMERA ACTIVATED, patient seen via real-time interactive audiovisual communication: Camera activated Consent obtained for tele-product development engineer care: Yes Patient Location: ICU Provider location (State): [place] Other participants/roles: RN Interval history: Ms hall BP remains a significant challenge as she has been unable to be weaned from vasopressors. I switched her to vasopressin yesterday for the benefit of her pulmonary cirulation but again she is unable to be weaned. Howevr she is awake in good spirits Current Medications Current Medications Medications: Home Medications gabapentin 300 mg capsule 300 mg PO QID 05/13/23 [History Confirmed 05/13/23] metoprolol tartrate 25 mg tablet 75 mg PO BID 05/13/23 [History Confirmed 05/13/23] Visit Medications (administered) Generic Name Dose Route Start Last Admin Trade Name Freq PRN Reason Stop Dose Admin Acetaminophen 650 mg 05/13/23 22:32 05/15/23 08:11 Acetaminophen 325 Mg Tablet PO 650 mg Q6H PRN Administration Fever/Mild Pain (1-3) Hydrocodone Bitart/Acetaminophen 1 tab 05/13/23 22:32 05/16/23 00:36 Hydrocodone/Acet 5/325 Tablet PO 1 tab Q4H PRN Administration Pain, Moderate (4-6) Apixaban 5 mg 05/14/23 21:00 05/16/23 08:27 Apixaban 5 Mg Tablet PO 5 mg BID VERO Administration Gabapentin 300 mg 05/14/23 09:00 05/16/23 08:27 Gabapentin 300 Mg Capsule PO 300 mg QID VERO Administration Cefepime HCl 1 gm/ Sodium 100 mls @ 200 mls/hr 05/14/23 09:45 05/16/23 09:49 Chloride IV 200 mls/hr Q12H VERO Administration NOREPINEPHRINE BITARTRATE/D5W 4 mg in 250 mls @ 45.6 mls/hr 05/14/23 12:02 05/15/23 15:05 Levophed IV 0 mcg/kg/min TITRATE VERO 0 mls/hr Titration Protocol 0.1 MCG/KG/MIN Vancomycin HCl/Dextrose 1,500 mg in 300 mls @ 200 mls/hr 05/15/23 21:00 05/15/23 22:21 Vancomycin IV Infused Q24H VERO Infusion Vasopressin 40 unit/ Sodium 102 mls @ 4.5 mls/hr 05/15/23 14:12 05/16/23 10:03 Chloride IV 4.5 mls/hr CONT VERO Administration Nystatin 1 applic 05/16/23 09:00 05/16/23 08:27 Nystatin Powder 15gm TOP 1 applic BID VERO Administration Oxycodone HCl 10 mg 05/14/23 09:01 05/14/23 09:10 Oxycodone Ir 10 Mg Tablet PO 10 mg Q3HR PRN Administration Pain, Severe (7-10) Sennosides 17.2 mg 05/14/23 21:00 05/15/23 20:51 Sennosides 8.6 Mg Tablet PO 17.2 mg BEDTIME VERO Administration Objective Labs 05/16/23 05:20 05/16/23 05:20 Labs: Laboratory Results - last 24 hr 05/16/23 05:20 WBC 8.3 RBC 3.30 L Hgb 9.7 L Hct 30.1 L MCV 91.3 MCH 29.3 MCHC 32.1 RDW 19.8 H Plt Count 193 Neut % (Auto) 75.6 H Lymph % (Auto) 8.1 L [place] % (Auto) 13.7 Eos % (Auto) 1.8 L Baso % (Auto) 0.8 Neut # (Auto) 6300 Lymph # (Auto) 700 L [place] # (Auto) 1100 H Eos # (Auto) 100 Baso # (Auto) 100 Sodium 137 Potassium 4.5 Chloride 103 Carbon Dioxide 27 BUN 28 H Creatinine 0.74 Estimated GFR > 60 BUN/Creatinine Ratio 37.8 H Glucose 131 H Calcium 8.3 L Magnesium 1.5 L Total Bilirubin 0.9 AST 45 H ALT 25 Alkaline Phosphatase 192 H Total Protein 6.7 Albumin 2.9 L Globulin 3.8 Albumin/Globulin Ratio 0.8 L Exam Vital Signs (past 8 hours): - 05/16/23 05:00 05/16/23 05:00 05/16/23 06:00 Temperature 96.1 F L Pulse Rate 81 Respiratory Rate 15 Blood Pressure 97/54 L 102/58 L Pulse Oximetry 97 Oxygen Delivery Method 05/16/23 06:00 05/16/23 07:00 05/16/23 07:00 Temperature 96.1 F L 96.1 F L Pulse Rate 90 85 Respiratory Rate 12 14 Blood Pressure 111/77 Pulse Oximetry 99 99 Oxygen Delivery Method 05/16/23 08:00 05/16/23 08:00 05/16/23 08:00 Temperature 95.7 F L Pulse Rate 80 Respiratory Rate 13 Blood Pressure 99/60 Pulse Oximetry 97 Oxygen Delivery Method Nasal Cannula 05/16/23 09:00 05/16/23 09:00 05/16/23 10:00 Temperature 95.5 F L Pulse Rate 87 Respiratory Rate 19 Blood Pressure 119/77 122/67 Pulse Oximetry 99 Oxygen Delivery Method 05/16/23 10:00 05/16/23 11:00 05/16/23 11:00 Temperature 95.2 F L 95.2 F L Pulse Rate 114 H 113 H Respiratory Rate 21 27 H Blood Pressure 137/68 Pulse Oximetry 96 97 Oxygen Delivery Method 05/16/23 12:00 05/16/23 12:01 05/16/23 12:01 Temperature 95.4 F L 95.4 F L Pulse Rate 115 H 116 H Respiratory Rate 21 25 H Blood Pressure 95/59 L Pulse Oximetry 97 97 Oxygen Delivery Method Oxygen Delivery Method Nasal Cannula Oxygen Flow Rate 2 Narrative Exam Narrative: awake, NAD Chest Other: symmetric chest rise Cardio Other: tachycardic on monitor Quality TeleICU VTE Deep Vein Thrombosis/Pulmonary Embolism Present on Admission: No Assessment & Plan Assessment & Plan narrative: # Acute encephalopathy # Acute hypoxemia respiratory failure # Shock # Lactic acidosis # Sepsis supplemental o2 bipap as needed, but would take caution with PPV given her severe PH map goal >65 on vasopressin given PH , wea noff as tolerated - I added midodrine, hwoever given her PH I will closely monitor and de-escalate if needed adat trend bmp monitor UO on empirc abx wound care for LE ulcers/wounds f/u cx dvt ppx goal bg < 180 trend LA ttoal CCT 35 min Time Spent With Patient Time with patient: 30 to 49 minutes with 50% spent counseling/coordinating care
[2023-05-16] MEDS: MIDODRINE HCL 5 MG TABLET 10 MG PO ×2 (12:56→18:28)
--- NOTE | 2023-05-16 13:10 | CM.DPC ---
DCP Cont. Reviewed EMR and team rounds for status updates. Completed the [employer] expedited form for Medicaid LTC, will fax it tomorrow am once pt's son brings in the rest of the Medicaid application. Need to complete PASSAR as well. Likely 1-more day until ready for d/c.
[2023-05-16] MEDS: MORPHINE 2 MG/ML INJ IV (14:05)
--- NOTE | 2023-05-16 15:53 | PM.CN ---
History of Present Illness Consult details Date Patient Seen: 05/16/23 Time Patient Seen: 13:30 Chief complaint: bilateral leg swelling, cracking Narrative: The patient is a 77-year-old female with obesity, pulmonary hypertension, and congestive heart failure who was admitted to the hospital May 13 2023 with exacerbation of CHF and cellulitis of both lower extremities. The patient was found to have ulcers on the posterior aspect of both lower extremities. She reports that she has intermittently had ulcers in the same location often on for the past year. The most recent ulcers were 1st noted about 1 week ago. The patient reports that the ulcers are very painful. She does have some watery drainage but has not had any fever or chills. Lower extremity swelling has improved since admission to the hospital. The patient has been on IV antibiotic therapy since admission and reports that her legs are less tender. Arterial Doppler showed no focal stenosis. Venous ultrasound showed no evidence for DVT. The patient ambulates very little and spends the majority of her time sitting in a chair. She reports a good appetite. Ulcers have previously been treated with compression wraps. The patient has also recently developed painful left inframammary rash. Meds Home Medications and Allergies Home Medications Medication Instructions Recorded Confirmed Type gabapentin 300 mg capsule 300 mg PO QID 05/13/23 05/13/23 History metoprolol tartrate 25 mg tablet 75 mg PO BID 05/13/23 05/13/23 History Allergies Allergy/AdvReac Type Severity Reaction Status Date / Time Penicillins AdvReac Intermediate Extravasati Verified 05/15/23 15:13 on Review of Systems Musculoskeletal Comments: History of intermittent swelling of the lower extremities Integumentary/Breasts Comments: History of lower extremity ulcers Exam Vital Signs (past 8 hours): - 05/16/23 08:00 05/16/23 08:00 05/16/23 08:00 Temperature 95.7 F L Pulse Rate 80 Respiratory Rate 13 Blood Pressure 99/60 Pulse Oximetry 97 Oxygen Delivery Method Nasal Cannula 05/16/23 09:00 05/16/23 09:00 05/16/23 10:00 Temperature 95.5 F L Pulse Rate 87 Respiratory Rate 19 Blood Pressure 119/77 122/67 Pulse Oximetry 99 Oxygen Delivery Method 05/16/23 10:00 05/16/23 11:00 05/16/23 11:00 Temperature 95.2 F L 95.2 F L Pulse Rate 114 H 113 H Respiratory Rate 21 27 H Blood Pressure 137/68 Pulse Oximetry 96 97 Oxygen Delivery Method 05/16/23 12:00 05/16/23 12:00 05/16/23 12:01 Temperature 95.4 F L 95.4 F L Pulse Rate 115 H 116 H Respiratory Rate 21 25 H Blood Pressure Pulse Oximetry 97 97 Oxygen Delivery Method Nasal Cannula 05/16/23 12:01 05/16/23 13:00 05/16/23 13:01 Temperature 95.5 F L Pulse Rate 107 H Respiratory Rate 16 Blood Pressure 95/59 L 128/64 Pulse Oximetry 97 Oxygen Delivery Method 05/16/23 13:01 05/16/23 14:00 05/16/23 14:00 Temperature 95.5 F L 95.7 F L Pulse Rate 118 H 120 H Respiratory Rate 16 25 H Blood Pressure 137/68 Pulse Oximetry 98 96 Oxygen Delivery Method 05/16/23 14:52 05/16/23 14:52 05/16/23 15:00 Temperature Pulse Rate 130 H 131 H Respiratory Rate 28 H Blood Pressure 136/68 Pulse Oximetry 96 95 Oxygen Delivery Method 05/16/23 15:01 05/16/23 15:01 Temperature Pulse Rate 131 H Respiratory Rate Blood Pressure 159/80 H Pulse Oximetry 96 Oxygen Delivery Method Oxygen Delivery Method Nasal Cannula Oxygen Flow Rate 2 Const Other: Obese female who is alert and oriented and in no apparent distress Skin Other: Fungal rash along left inframammary fold Full-thickness ulcers posterior aspect of both lower extremities, left greater than right, no necrotic tissue or active infection involving the ulcers Extrem Other: Severe bilateral lower extremity edema Objective Labs 05/16/23 05:20 05/16/23 05:20 Labs: Laboratory Results - last 24 hr 05/16/23 05:20 WBC 8.3 RBC 3.30 L Hgb 9.7 L Hct 30.1 L MCV 91.3 MCH 29.3 MCHC 32.1 RDW 19.8 H Plt Count 193 Neut % (Auto) 75.6 H Lymph % (Auto) 8.1 L [place] % (Auto) 13.7 Eos % (Auto) 1.8 L Baso % (Auto) 0.8 Neut # (Auto) 6300 Lymph # (Auto) 700 L [place] # (Auto) 1100 H Eos # (Auto) 100 Baso # (Auto) 100 Sodium 137 Potassium 4.5 Chloride 103 Carbon Dioxide 27 BUN 28 H Creatinine 0.74 Estimated GFR > 60 BUN/Creatinine Ratio 37.8 H Glucose 131 H Calcium 8.3 L Magnesium 1.5 L Total Bilirubin 0.9 AST 45 H ALT 25 Alkaline Phosphatase 192 H Total Protein 6.7 Albumin 2.9 L Globulin 3.8 Albumin/Globulin Ratio 0.8 L PFSH Social History household members: family Tobacco & Substance Use Smoking Status: Never smoker Assessment & Plan Assessment and plan (1) Chronic venous stasis: Status: Acute (2) Non-pressure chronic ulcer of left calf with fat layer exposed: Status: Acute (3) Non-pressure chronic ulcer of right calf with fat layer exposed: Status: Acute (4) Other sites of candidiasis: Status: Acute Assessment & Plan narrative: Recommend dressing changes to both lower extremities with Unna, ABD pad, and Tubigrip for compression. Apply Lotrisone cream and skin moisturizer to periwound skin. Nystatin powder and abd pad to left inframammary rash. Follow up at wound center after discharge. The patient will need placement of compression wraps to promote healing of the lower extremity ulcers. Time Spent With Patient Time with patient: 30 to 49 minutes with 50% spent counseling/coordinating care
[2023-05-16] MEDS: SENNOSIDES 8.6 MG TABLET 17.2 MG PO (20:58)
[2023-05-16] MEDS: VANCOMYCIN 1,500 MG/300 ML PIGGYBACK 200 MG IV (20:58)
[2023-05-17] VITALS (25 sets, daily range): BP systolic 122–181; BP diastolic 61–90; PULSE 89–115; RESP 11–23; TEMP 35.9–36.3; O2SAT 94–98
[2023-05-17] MEDS: ACETAMINOPHEN 325 MG TABLET 650 MG PO (02:01)
[2023-05-17] MEDS: MIDODRINE HCL 5 MG TABLET 10 MG PO (05:24)
[2023-05-17 05:41] LABS: Add Manual Diff / Slide Review NO; Basophils Absolute Auto 100 /uL (0-100); Basophils Percent Auto 0.9 % (0-2); Eosinophils Absolute Auto 200 /uL (0-450); Eosinophils Percent Auto 2.1 % (2-4); Hematocrit 32.3 % (36-46); Hemoglobin 10.2 g/dL (12.0-16.0); Lymphocytes Absolute Auto 1000 /uL (1100-4500); Lymphocytes Percent Auto 10.5 % (25-40); Mean Corpuscular HGB Conc 31.7 % (30-36); Mean Corpuscular Hemoglobin 28.9 PG (26-34); Mean Corpuscular Volume 91.2 fL (80-100); Monocytes Absolute Auto 1200 /uL (0-900); Monocytes Percent Auto 12.6 % (3-14); Neutrophils Absolute Auto 6700 /uL (1500-7000); Neutrophils Percent Auto 73.9 % (50-75); Platelet Count 182 X10^3/uL (150-400); Red Blood Cell Count 3.54 X10^6/uL (4.0-5.2); Red Cell Distribution Width 19.6 % (11.6-14.8); White Blood Cell Count 9.1 X10^3/uL (4.5-11.0)
[2023-05-17 06:00] LABS: Alanine Aminotransferase 25 IU/L (<35); Albumin 3.1 g/dL (3.5-5.0); Albumin Globulin Ratio 0.8 (1.0-2.8); Alkaline Phosphatase 199 U/L (38-126); Aspartate Aminotransferase 36 IU/L (14-36); BUN Creatinine Ratio 46.9 (6-22); Bilirubin Total 0.9 mg/dL (0.2-1.3); Blood Urea Nitrogen 30 mg/dL (7-17); Calcium 8.8 mg/dL (8.4-10.2); Carbon Dioxide 27 mmol/L (22-32); Chloride 102 mmol/L (98-107); Estimated Glomerular Filt Rate > 60 mL/min (>60); Globulin 4.1 g/dL (1.7-4.1); Glucose 99 mg/dL (80-110); HEMOLYSIS < 15 (0-50); Magnesium 1.6 mg/dL (1.6-2.3); Potassium 4.8 mmol/L (3.4-5.1); Sodium 136 mmol/L (137-145); Total Protein 7.2 g/dL (6.3-8.2)
--- NOTE | 2023-05-17 07:59 | PM.PN.1 ---
Subjective Subjective Interval history: She was a little confused this morning about whether was day or night. She does overall feel better. No dyspnea. She is off oxygen. Exam Vital Signs (past 8 hours): - 05/17/23 00:00 05/17/23 00:00 05/17/23 00:06 Temperature 96.8 F L Pulse Rate 115 H Respiratory Rate 21 Blood Pressure 181/86 H 168/76 H Pulse Oximetry 95 Oxygen Delivery Method Room Air Oxygen Flow Rate 0 05/17/23 00:06 05/17/23 01:00 05/17/23 02:00 Temperature Pulse Rate 114 H 99 H Respiratory Rate 21 12 Blood Pressure 145/63 H 132/72 Pulse Oximetry 95 97 Oxygen Delivery Method Oxygen Flow Rate 0 05/17/23 02:00 05/17/23 03:00 05/17/23 03:00 Temperature Pulse Rate 94 H 98 H Respiratory Rate 13 12 Blood Pressure 130/64 Pulse Oximetry 96 96 Oxygen Delivery Method Oxygen Flow Rate 0 0 05/17/23 04:00 05/17/23 04:00 05/17/23 04:00 Temperature 96.9 F L Pulse Rate 102 H Respiratory Rate 23 Blood Pressure 124/61 Pulse Oximetry 96 Oxygen Delivery Method Room Air Oxygen Flow Rate 0 05/17/23 05:00 05/17/23 05:00 05/17/23 06:00 Temperature Pulse Rate 94 H Respiratory Rate 17 Blood Pressure 140/69 155/68 H Pulse Oximetry 96 Oxygen Delivery Method Oxygen Flow Rate 0 0 05/17/23 06:00 05/17/23 07:00 Temperature Pulse Rate 89 101 H Respiratory Rate 11 L 16 Blood Pressure Pulse Oximetry 96 94 Oxygen Delivery Method Oxygen Flow Rate Oxygen Delivery Method Room Air Oxygen Flow Rate 0 Narrative Exam Narrative: NAD, calm. Oriented when I was talking to her other than time of day. Lungs are clear with normal rate and effort. Heart is irregular and rate controlled. Abdomen is soft, and nontender. Extremities are wrapped. Objective Labs 05/17/23 05:30 05/17/23 05:30 Labs: Laboratory Results - last 24 hr 05/17/23 05:30 WBC 9.1 RBC 3.54 L Hgb 10.2 L Hct 32.3 L MCV 91.2 MCH 28.9 MCHC 31.7 RDW 19.6 H Plt Count 182 Neut % (Auto) 73.9 Lymph % (Auto) 10.5 L [place] % (Auto) 12.6 Eos % (Auto) 2.1 Baso % (Auto) 0.9 Neut # (Auto) 6700 Lymph # (Auto) 1000 L [place] # (Auto) 1200 H Eos # (Auto) 200 Baso # (Auto) 100 Sodium 136 L Potassium 4.8 Chloride 102 Carbon Dioxide 27 BUN 30 H Creatinine 0.64 Estimated GFR > 60 BUN/Creatinine Ratio 46.9 H Glucose 99 Calcium 8.8 Magnesium 1.6 Total Bilirubin 0.9 AST 36 ALT 25 Alkaline Phosphatase 199 H Total Protein 7.2 Albumin 3.1 L Globulin 4.1 Albumin/Globulin Ratio 0.8 L [facility] Social History household members: family Smoking Status: Never smoker Assessment & Plan Assessment & Plan narrative: 1. Septic shock with acute metabolic encephalopathy, acute respiratory failure with hypoxia, and elevated bilirubin. Active and improving. - continue cefepime and vanco per pharmacy. If cultures remain negative can likely discontinue vanco with negative MRSA nasal swab in the next few days. - source LE cellulitis. Neg blood culture. - Discuss with eICU and bolus saline 500 once and re attempt vasopressin wean. 2. Septic encephalopathy, present on admission and improving. -OOB 3. Leg cellulitis, present on admission and improving. 4. Acute hypoxic respiratory failure, present on admission and resolved. 5. Demand ischemia, present on admission and improving. - echo with normal wall motion and EF around 55%. - trend troponin until downtrending, currently 0.695. Had LHC on 10/2022 which showed clean coronaries per outside records received. - from her last hospitalization it appears as if she is supposed to be on xarelto, started eliquis. 6. Acute on chronic diastolic heart failure, present on admission and improving. - diurese prn for now with shock. Hold lasix due to low BP. - is also supposed to be on furosemide and aldactone from outside medication records. 7. Chronic atrial fibrillation with RVR, present on admission and active. - start eliquis as noted above - holding home metoprolol for now 8. HTN, not active. - holding home metoprolol and diuretics in setting of possible septic shock. 9. Morbid obesity, present on admission and active. - The patient is at much higher risk for medical and surgical complications because of their obesity. This increases the difficulty and complexity of medical and surgical interventions and increases the chances of poor outcomes such as morbidity and mortality. DISPO: looking for a SNF for rehab transition. Code: DNR, surrogate is patient's son DVT: start eliquis as noted above Time Spent With Patient Time with patient: 30 to 49 minutes with 50% spent counseling/coordinating care Quality VTE Deep Vein Thrombosis/Pulmonary Embolism Present on Admission: No
[2023-05-17] MEDS: GABAPENTIN 300 MG CAPSULE PO (09:03)
[2023-05-17] MEDS: APIXABAN 5 MG TABLET PO (09:03)
[2023-05-17] MEDS: NYSTATIN POWDER 15GM 1 APPLIC TOP (09:03)
[2023-05-17] MEDS: CEFEPIME 1 GM in SODIUM CHLORIDE 0.9% 100 ML IV (09:10)
--- NOTE | 2023-05-17 09:52 | PC.NURSE ---
During AM assessment, RN noted L hand to have minor swelling. RN assessed hand, neurovascularly intact with pulse, and reported to provider. Provider recommended that proximal IV in antecubital be removed and RN removed IV. RN looked at blood pressures overnight and saw most systolics in the 130s and 140s, RN reported to provider and provider holding midrodine.
[2023-05-17] MEDS: HYDROCODONE/ACET 5/325 TABLET 1 TAB PO (10:32)
[2023-05-17] MEDS: MAGNESIUM CHLORIDE 64 MG TABLET 128 MG PO (11:23)
--- NOTE | 2023-05-17 11:44 | PM.DS.1 ---
History of Present Illness History of Present Illness Chief complaint: bilateral leg swelling, cracking Narrative: 77 y/o with PMH of b/l leg swelling, lymphedema, visiting from [facility], brought by a son for worsening legs swelling, weeping. She is not a good historian and I understand that she has a history of atrial fibrilation, HTN, alcoholism. On admission to ED fluid overloaded, septic, started on vancomycin / cefepime and given a total of 1.5 L of IVFs with elevated BNP and likely CHF. Discharge Providers Provider Date of admission: 05/13/23 22:05 Discharge Date: 05/17/23 Consults: 05/13/23 23:29 Consult to Dietitian, Adult Routine Comment: Reason For Exam: nutritional support for wound healing Consult to Pastoral Services Routine Comment: pt request 05/14/23 08:10 Consult to Brazing Machine Operator Helper Routine Comment: 05/14/23 14:15 Consult to Tele-freelance patternmaker Routine Comment: Consulting Provider: [facility] [employer] Reason for consultation: Biblical Languages Professor services 05/15/23 07:35 Consult to Inpatient Wound Care Nurse Routine Comment: Reason for consultation: Bilateral leg wounds Has provider been notified: Yes 05/17/23 09:01 Consult to Occupational Therapy Evaluate & Treat Comment: Physician Instructions: Evaluate and treat Consult to Physical Therapy Evaluate & Treat Comment: Physician Instructions: Evaluate and Treat Discharge provider: Maxwell Cho MD Summary Hospital Course Discharge Diagnosis: 1. Septic shock with acute metabolic encephalopathy, acute respiratory failure with hypoxia, and elevated bilirubin. Active and improving. - continue cefepime and vanco per pharmacy. If cultures remain negative can likely discontinue vanco with negative MRSA nasal swab in the next few days. - source bilateral leg cellulitis. Neg blood culture. - Discuss with eICU and bolus saline 500 once and re attempt vasopressin wean. 2. Septic encephalopathy, present on admission and improving. -OOB 3. Leg cellulitis, present on admission and improving. 4. Acute hypoxic respiratory failure, present on admission and resolved. 5. Demand ischemia, present on admission and improving. - echo with normal wall motion and EF around 55%. - trend troponin until downtrending, currently 0.695. Had LHC on 10/2022 which showed clean coronaries per outside records received. - from her last hospitalization it appears as if she is supposed to be on xarelto, started eliquis. 6. Acute on chronic diastolic heart failure, present on admission and improving. - diurese prn for now with shock. Hold lasix due to low BP. - is also supposed to be on furosemide and aldactone from outside medication records. 7. Chronic atrial fibrillation with RVR, present on admission and active. - start eliquis as noted above - holding home metoprolol for now 8. HTN, not active. - holding home metoprolol and diuretics in setting of possible septic shock. 9. Morbid obesity, present on admission and active. - The patient is at much higher risk for medical and surgical complications because of their obesity. This increases the difficulty and complexity of medical and surgical interventions and increases the chances of poor outcomes such as morbidity and mortality. 10. Leg wounds, present on admission and active. Wound care recs: Recommend dressing changes to both lower extremities with Unna, ABD pad, and Tubigrip for compression. Apply Lotrisone cream and skin moisturizer to periwound skin. Nystatin powder and abd pad to left inframammary rash. Follow up at wound center after discharge. The patient will need placement of compression wraps to promote healing of the lower extremity ulcers. Hospital Course: She was admitted for septic shock with unclear source initially. This did appear to be cellulitis. The patient also had evidence of septic shock and required pressors for several days. She ultimately weaned off using midodrine but this was able to be discontinued. Her blood cultures remained negative and her urine was negative. Chest x-ray was negative for pneumonia. She was treated with empiric antibiotics and will be converted to oral cephalexin for the next several days as well. She did have atrial fibrillation which is chronic and was started on Eliquis. She usually takes metoprolol 75 b.i.d. but this is being held at the time of discharge as she came off from pressors on May 16 and was on midodrine and until the evening of the . She will likely require reinstitution of metoprolol over the next several days as her blood pressure increases. Her mental status has improved. Status at Discharge Cognitive/behavioral status at discharge: oriented Functional status at discharge: uses cane/walker Overall status at discharge: patient is progressing back to baseline Time Spent with Patient Time spent: Greater than 30 minutes Exam Vital Signs (past 8 hours): - 05/17/23 04:00 05/17/23 04:00 05/17/23 04:00 Temperature 96.9 F L Pulse Rate 102 H Respiratory Rate 23 Blood Pressure 124/61 Pulse Oximetry 96 Oxygen Delivery Method Room Air Oxygen Flow Rate 0 05/17/23 05:00 05/17/23 05:00 05/17/23 06:00 Temperature Pulse Rate 94 H Respiratory Rate 17 Blood Pressure 140/69 155/68 H Pulse Oximetry 96 Oxygen Delivery Method Oxygen Flow Rate 0 0 05/17/23 06:00 05/17/23 07:00 05/17/23 07:01 Temperature 96.7 F L Pulse Rate 89 101 H 95 H Respiratory Rate 11 L 16 15 Blood Pressure 134/70 Pulse Oximetry 96 94 96 Oxygen Delivery Method Oxygen Flow Rate 2 05/17/23 07:01 05/17/23 07:30 05/17/23 08:00 Temperature Pulse Rate 92 H Respiratory Rate 14 Blood Pressure 147/85 H 134/70 Pulse Oximetry 98 Oxygen Delivery Method Oxygen Flow Rate 05/17/23 08:00 05/17/23 08:00 05/17/23 08:30 Temperature Pulse Rate 92 H 96 H Respiratory Rate 20 17 Blood Pressure Pulse Oximetry 96 97 Oxygen Delivery Method Room Air Oxygen Flow Rate 05/17/23 09:00 05/17/23 09:00 05/17/23 09:30 Temperature Pulse Rate 101 H 99 H Respiratory Rate 15 14 Blood Pressure 134/72 Pulse Oximetry 96 94 Oxygen Delivery Method Oxygen Flow Rate 05/17/23 10:00 05/17/23 10:00 05/17/23 11:00 Temperature Pulse Rate 100 H Respiratory Rate 16 Blood Pressure 129/65 122/90 Pulse Oximetry 96 Oxygen Delivery Method Oxygen Flow Rate 05/17/23 11:00 Temperature Pulse Rate 102 H Respiratory Rate 21 Blood Pressure Pulse Oximetry 97 Oxygen Delivery Method Oxygen Flow Rate Oxygen Delivery Method Room Air Oxygen Flow Rate 2 Narrative Exam Narrative: NAD, calm. Oriented when I was talking to her other than time of day. Lungs are clear with normal rate and effort. Heart is irregular and rate controlled. Abdomen is soft, and nontender. Extremities are wrapped. Objective Imaging Multiple Studies:: Radiologist's impression: Admission chest x-ray: Prominent interstitial markings. Leg duplex ultrasound: No DVT. Echo:This is a technically difficult study complicated by off axis apical views due to chest wall tenderness. A-fib with wide QRS complexes; heart rate is 66-106 bpm. Normal LV size and wall thickness. Normal wall motion and LV systolic function with ejection fraction estimated at 50-55%. Moderately dilated right ventricle; D-shaped LV in systole and diastole consistent with RV pressure overload. Estimated PA systolic pressure is 51 mm Hg assuming RA pressure of 15 mm Hg. Aortic sclerosis without stenosis. Moderate mitral annular calcification with moderate associated central mitral regurgitation No prior study available for comparison. Follow up chest x-ray May 14 PICC line, no pneumothorax. Labs 05/17/23 05:30 05/17/23 05:30 Labs: Laboratory Results - last 24 hr 05/17/23 05:30 WBC 9.1 RBC 3.54 L Hgb 10.2 L Hct 32.3 L MCV 91.2 MCH 28.9 MCHC 31.7 RDW 19.6 H Plt Count 182 Neut % (Auto) 73.9 Lymph % (Auto) 10.5 L [place] % (Auto) 12.6 Eos % (Auto) 2.1 Baso % (Auto) 0.9 Neut # (Auto) 6700 Lymph # (Auto) 1000 L [place] # (Auto) 1200 H Eos # (Auto) 200 Baso # (Auto) 100 Sodium 136 L Potassium 4.8 Chloride 102 Carbon Dioxide 27 BUN 30 H Creatinine 0.64 Estimated GFR > 60 BUN/Creatinine Ratio 46.9 H Glucose 99 Calcium 8.8 Magnesium 1.6 Total Bilirubin 0.9 AST 36 ALT 25 Alkaline Phosphatase 199 H Total Protein 7.2 Albumin 3.1 L Globulin 4.1 Albumin/Globulin Ratio 0.8 L [facility] Social History household members: family Smoking Status: Never smoker Discharge Assessment & Plan Assessment and Plan Assessment: 1. Septic shock, present on admission and resolved. 2. Septic encephalopathy, present on admission and improving. 3. Leg cellulitis, present on admission and improving. 4. Acute hypoxic respiratory failure, present on admission and resolved. 5. Demand ischemia, present on admission and improving. 6. Acute on chronic diastolic heart failure, present on admission and improving. 7. Chronic atrial fibrillation with RVR, present on admission and active. 8. HTN, not active. - holding home metoprolol until BP improves. 9. Morbid obesity, present on admission and active. - The patient is at much higher risk for medical and surgical complications because of their obesity. This increases the difficulty and complexity of medical and surgical interventions and increases the chances of poor outcomes such as morbidity and mortality. 10. Leg wounds, present on admission and active. Wound care recs: Recommend dressing changes to both lower extremities with Unna, ABD pad, and Tubigrip for compression. Apply Lotrisone cream and skin moisturizer to periwound skin. Nystatin powder and abd pad to left inframammary rash. Follow up at wound center after discharge. The patient will need placement of compression wraps to promote healing of the lower extremity ulcers. Plan of Treatment: The patient will be discharged to [facility] usp facility. She will need ongoing wound care with recommendations above and recommendations for wound care at [facility] and [place]. In addition she will require resumption of metoprolol over the next several days as her blood pressure improves. She will likely benefit from starting at 25 b.i.d. or even 12.5 b.i.d. and then slowly progressing back to her baseline dose of 75 b.i.d.. Discharge Plan Discharge Plan Patient Disposition: SNF Other facility: [facility] Provider Discharge Comment: Stable for discharge to SNF. Discharge orders & Medications Prescriptions: New Eliquis 5 mg Tablet 5 mg PO BID Qty: 60 1RF nystatin [Nystop] 100,000 unit/gram Powder 1 applic topical BID Qty: 60 0RF Lotrisone 1 cream topical DAILY Qty: 60 0RF cephalexin 500 mg capsule 500 mg PO QID Qty: 16 0RF oxycodone-acetaminophen [Percocet] 5-325 mg tablet 1 tab PO Q6H PRN (Reason: pain) Qty: 20 0RF Continued gabapentin 300 mg Capsule 300 mg PO QID Rx Instructions: make take an additional 300mg up to 2x daily Discontinued metoprolol tartrate 25 mg tablet 75 mg PO BID Follow up/Referrals: Miscellaneous,Doctor, [Non-Staff] - Discharge Health Status Multidrug resistant organism: No MDRO Diet/Activity/Treatments Diet: Regular Activity: as tolerated Skin/Wound/Dressing Care Report to your healthcare provider any signs of infection, such as:: increased pain and unusual drainage Special Rehabilitation Services Rehab type: Physical therapy and Occupational therapy Visit Report/Discharge Packet Stand Alone Forms: Patient Portal/API Quality VTE Deep Vein Thrombosis/Pulmonary Embolism Present on Admission: No
[2023-05-17] MEDS: OXYCODONE IR 10 MG TABLET PO (13:30)
[2023-05-17] MEDS: LORazepam 0.5 MG TABLET PO (13:55)
--- NOTE | 2023-05-17 14:07 | CM.DPC ---
DCP Cont. Reviewed EMR and team rounds for status updates. Pt has improved significantly over the last 48-hours, she's still mildly confused, however is up ambulating, is no longer on any PRN psych meds for the last 48-hours. Called [facility] and updated them on pt's improved status. They have submitted the auth, however it's not available yet. We will arrange for [employer] transportation once we know she's been approved, likely we will have a d/c tomorrow. Will monitor closely. Updated spouse and RN.
--- NOTE | 2023-05-17 14:12 | CM.DPC ---
DCP Cont. Reviewed EMR and team rounds for status updates. Called [facility], they can accept patient today, transport will be around 2:30pm today. Faxed clinicals and scripts to [facility]. Completed the [facility] Long-Term [facility] application, faxed to [facility] for review. Assisted son in completing the [place] application for Medicaid Long-Term Care, faxed to [facility] for initiating process. Son will continue to follow for the outcome of eventual long-term Assisted Living Placement. No further needs indicated at this time for CM assistance.
== END 2023-05-17 14:20 | DRG 871 ==
LOC: ED 18:06 → AC 22:06 → ICU 22:56
PROVIDERS: Emergency Medicine; Internal Medicine; Internal Medicine Pulmonary Disease; Admitting Provider Internal Medicine; Emergency Provider Emergency Medicine; Referring Provider Emergency Medicine; Visit Provider Internal Medicine
DX: A41.9 Sepsis, unspecified organism (principal); G93.41 Metabolic encephalopathy; R65.21 Severe sepsis with septic shock; J96.01 Acute respiratory failure with hypoxia; I50.33 Acute on chronic diastolic (congestive) heart failure; L03.116 Cellulitis of left lower limb; I48.20 Chronic atrial fibrillation, unspecified; Z68.41 Body mass index [BMI] 40.0-44.9, adult; I24.89 Other forms of acute ischemic heart disease; L97.222 Non-pressure chronic ulcer of left calf with fat layer exposed; L97.212 Non-pressure chronic ulcer of right calf with fat layer exposed; B37.89 Other sites of candidiasis; L03.115 Cellulitis of right lower limb; I87.8 Other specified disorders of veins; E66.01 Morbid (severe) obesity due to excess calories; I11.0 Hypertensive heart disease with heart failure; I25.2 Old myocardial infarction; Z66 Do not resuscitate
CPT/HCPCS: 36415; 36569; 36592; 36600; 71045; 80048; 80053; 80061; 80202; 80305; 80320; 81001; 82550; 82805; 83036; 83605; 83690; 83735; 83880; 83986; 84145; 84443; 84484; 85025; 85610; 85730; 87040; 87797; 93005; 93306; 93925; 93970; 96365; 96367; 99232; 99233; 99284; 99285; 99291; J0692; J1650; J1940; J2270